=== PATIENT | female | born 1935 ===

== ENCOUNTER 2017-05-14 07:15 | Day surgery (SDC) | payer MEDICARE ==
[2017-05-14 08:06] VITALS: BMI 23.8
[2017-05-14] MEDS ORDERED: Lactated Ringer's 500 ML IV ONE ×2 (08:35)
--- NOTE | 2017-05-14 08:49 | CP.SDSHP ---
Same Day Surgery H & P - History Proposed Procedure: High risk Screening Colonoscopy - Previous Medical/Surgical History Cardiac: Hypertension Endocrine/Metabolic: Diabetes Previous Surgical History: Gastric ulcer, cholecystectomy, right oophorectomy, appendectomy - Allergies Allergies: Allergies No Known Allergies Allergy (Unverified 02/11/14 10:15) - Current Medications Current Medications: See reconciliation sheet - Physical Exam General Appearance: WD WN female in NAD Vital Signs: Vital Signs 05/14/17 08:06 Temperature 97.1 F L Pulse Rate 81 Respiratory 20 Rate Blood Pressure 158/67 H O2 Sat by Pulse 99 Oximetry Mental Status: Alert & Oriented x3 Neuro: WNL Heart: WNL Lungs: WNL GI: WNL - {Optional Preform as Required} Abdomen: WNL - Impression Impression: History of colon polyps Pt. Evaluated Today:Candidate for Anesthesia & Procedure: Yes - Date & Time Date: 05/14/17 Time: 08:48 Short Stay Discharge - Short Stay Discharge Admitting Diagnosis/Reason for Visit: IRRITABLE BOWEL SYNDROME WITHOUT DIARRHEA Disposition: HOME/ ROUTINE
[2017-05-14 08:57] VITALS: O2SAT 100
[2017-05-14 09:43] VITALS: TEMP 97.7
[2017-05-14 10:29] VITALS: BP 133/71; PULSE 63; RESP 15
== END 2017-05-14 10:28 | disposition home or self-care (01) ==
LOC: C.ENDO 07:15
PROVIDERS: ATTEND Internal Medicine Gastroenterology
DX: D01.2 Carcinoma in situ of rectum (principal); K62.1 Rectal polyp; K58.9 Irritable bowel syndrome, unspecified; Z86.010 Personal history of colon polyps
CPT/HCPCS: 45388; 82948; 88305; 88342; J7120

== ENCOUNTER 2017-05-17 23:27 | Inpatient (IN) | payer MEDICARE ==
[2017-05-17 23:27] VITALS: BMI 23.8
[2017-05-17] MEDS ORDERED: Sodium Chloride 0.9% 1,000 ML ONE (23:45)
--- NOTE | 2017-05-18 00:19 | C.PDOC ---
History Of Present Illness pt ate around 5:30 pm and then developed nausea and vomiting. Daugther states she vomited some dark substance, coffee grounds like. Pt also had a colonoscopy on sunday Time Seen by Provider: 05/18/17 00:19 Chief Complaint (Nursing): Abdominal Pain History Per: Patient History/Exam Limitations: no limitations Onset/Duration Of Symptoms: Hrs Current Symptoms Are (Timing): Still Present Context: Food Severity: Moderate Pain Scale Rating Of: 4 Location Of Pain/Discomfort: Diffuse Radiation Of Pain To:: None Quality Of Discomfort: Dull, Cramping Associated Symptoms: Nausea, Vomiting. denies: Fever, Chills Exacerbating Factors: None Alleviating Factors: None Last Bowel Movement: Yesterday Recent travel outside of the [place]: No Additional History Per: Family Abnormal Vaginal Bleeding: No Past Medical History Reviewed: Historical Data, Nursing Documentation, Vital Signs Vital Signs: Last Vital Signs Temp 98.2 F 05/18/17 05:44 Pulse 70 05/18/17 05:44 Resp 14 05/18/17 05:44 BP 168/88 H 05/18/17 05:44 Pulse Ox 96 05/18/17 05:44 - Medical History PMH: Gall Bladder Disease, HTN, Hypercholesterolemia Denies: Chronic Kidney Disease Surgical History: Appendectomy, Cholecystectomy Family History: States: No Known Family Hx - Social History Hx Alcohol Use: No Hx Substance Use: No Review Of Systems Constitutional: Negative for: Fever, Chills Eyes: Negative for: Redness ENT: Negative for: Throat Pain Cardiovascular: Negative for: Chest Pain Respiratory: Negative for: Shortness of Breath Gastrointestinal: Positive for: Nausea, Vomiting, Abdominal Pain Genitourinary: Negative for: Hematuria Musculoskeletal: Negative for: Back Pain Skin: Negative for: Rash, Lesions Neurological: Negative for: Weakness Psych: Negative for: Anxiety Physical Exam - Physical Exam Appears: Non-toxic, No Acute Distress Skin: Warm, Dry Head: Normacephalic Eye(s): bilateral: Normal Inspection Oral Mucosa: Moist Neck: Supple Chest: Symmetrical Cardiovascular: Rhythm Regular Respiratory: No Rales, No Rhonchi, No Wheezing Gastrointestinal/Abdominal: Bowel Sounds (tympanic to percussion), Soft, Tenderness, Distention, No Guarding, No Rebound Back: No CVA Tenderness Extremity: No Tenderness Extremity: Bilateral: Atraumatic Pulses: Left Dorsalis Pedis: Normal, Right Dorsalis Pedis: Normal Neurological/Psych: Oriented x3, Normal Speech, Normal Cognition Gait: Steady ED Course And Treatment - Laboratory Results Result Diagrams: 05/18/17 00:27 05/18/17 00:27 ECG: Interpreted By Me, Viewed By Me ECG Rhythm: Sinus Rhythm (65), Nonspecific Changes O2 Sat by Pulse Oximetry: 99 Pulse Ox Interpretation: Normal Disposition Discussed With Dr.: Izabella Price Comment: accepted the pt on his service and took over the care at 6:12 AM Doctor Will See Patient In The: Hospital Counseled Patient/Family Regarding: Studies Performed, Diagnosis - Disposition Disposition: HOSPITALIZED Disposition Time: 00:19 Condition: FAIR Forms: [email or web address] (Spanish) - Clinical Impression Clinical Impression: Abdominal pain, Nausea, Vomiting, Small bowel obstruction Decision To Admit - Pt Status Changed To: Hospital Disposition Of: Inpatient - Admit Certification Admit to Inpatient:: After my assessment, the patient will require hospitalization for at least two midnights. This is because of the severity of symptoms shown, intensity of services needed, and/or the medical risk in this patient being treated as an outpatient. - InPatient: Physician Admission Certification:: After my assessment, the patient will require hospitalization for at least two midnights. This is because of the severity of symptoms shown, intensity of services needed, and/or the medical risk in this patient being treated as an outpatient. - . Bed Request Type: Regular Admitting Physician: Izabella Price Patient Diagnosis: Abdominal pain, Nausea, Vomiting, Small bowel obstruction
[2017-05-18] MEDS ORDERED: Sodium Chloride 0.9% 1,000 ML IV ONE (00:20)
[2017-05-18] MEDS ORDERED: Sodium Chloride 0.9% 1,000 ML ONE (00:25)
[2017-05-18 00:30] LABS: BASO # 0.1 K/uL (0.0-0.2); BASO % 0.5 % (0.0-2.0); EOS # 0.1 K/uL (0.0-0.7); EOS % 0.4 % (0.0-4.0); HEMOGLOBIN 12.5 g/dL (11.0-16.0); LYMPH # 1.7 K/uL (1.0-4.3); LYMPH % 11.2 % (20.0-40.0); MEAN CELL VOLUME 84.7 fL (81.0-99.0); MEAN CORPUSCULAR HEMOGLOBIN 27.9 pg (27.0-31.0); MEAN PLATELET VOLUME 9.5 fL (7.2-11.7); MONO # 0.7 K/uL (0.0-0.8); MONO % 4.5 % (0.0-10.0); NEUT # 12.9 K/uL (1.8-7.0); NEUT % 83.4 % (50.0-75.0); RBC 4.48 Mil/uL (3.80-5.20); RED CELL DISTRIBUTION WIDTH 14.2 % (11.5-14.5); WHITE BLOOD COUNT 15.5 K/uL (4.8-10.8)
[2017-05-18 00:43] LABS: INR 0.9; PROTHROMBIN TIME 10.5 SECONDS (9.7-12.2)
[2017-05-18 00:44] LABS: ALB/GLOB RATIO 1.4 (1.0-2.1); ALBUMIN 4.2 g/dL (3.5-5.0); CALCIUM 9.3 mg/dl (8.6-10.4)
[2017-05-18 01:26] LABS: URINE BILIRUBIN NEGATIVE (NEGATIVE); URINE BLOOD NEGATIVE (NEGATIVE); URINE CLARITY Clear (Clear); URINE COLOR Straw (YELLOW); URINE GLUCOSE (UA) 3+ mg/dL (Normal); URINE LEUKOCYTE ESTERASE NEG Leu/uL (Negative); URINE NITRATE NEGATIVE (NEGATIVE); URINE PROTEIN 1+ mg/dL (NEGATIVE); URINE UROBILINOGEN NORMAL mg/dL (0.2-1.0)
--- NOTE | 2017-05-18 02:59 | CT ---
EXAM: CT Abdomen and Pelvis Without Intravenous Contrast CLINICAL HISTORY: 82 years old, female; Pain; Abdominal pain; Additional info: Abd pain, distention, S/P sigmoid resection in apr TECHNIQUE: Axial computed tomography images of the abdomen and pelvis without intravenous contrast. This CT exam was performed using one or more of the following dose reduction techniques: automated exposure control, adjustment of the mA and/or kV according to patient size, and/or use of iterative reconstruction technique. Coronal and sagittal reformatted images were created and reviewed. COMPARISON: No relevant prior studies available. FINDINGS: Lower thorax: Coronary artery calcifications. Mild cardiomegaly. Surgical clips in the region of the gastroesophageal junction. Atherosclerotic vascular disease. ABDOMEN: Liver: Unremarkable. Gallbladder and bile ducts: Cholecystectomy. Bilateral renal cortical lobulation and thinning. No ductal dilation. Pancreas: Unremarkable. No ductal dilation. Spleen: Unremarkable. No splenomegaly. Adrenals: Unremarkable. No mass. Kidneys and ureters: Unremarkable. No obstructing stones. No hydronephrosis. Stomach and bowel: Stomach is decompressed. Small bowel loops are diffusely fluid-filled with some more dilated small bowel loops noted in the central portion of the abdomen containing air-fluid levels. The small bowel loops are dilated up to 4 CM diameter. The lack of oral contrast does limit this study to some degree. Bowel loops in the left pelvis are smaller in caliber raising the possibility of a partial distal small bowel obstruction. Fluid and stool throughout much of the colon. Moderate amount of stool seen through the sigmoid and rectum. Appendix: No findings to suggest acute appendicitis. PELVIS: Bladder: Unremarkable. No stones. Reproductive: Unremarkable as visualized. ABDOMEN and PELVIS: Intraperitoneal space: Unremarkable. No free air. No significant fluid collection. Bones/joints: Diffuse spinal degenerative changes. No acute fracture. No dislocation. Soft tissues: Unremarkable. Vasculature: No abdominal aortic aneurysm. Lymph nodes: Unremarkable. No enlarged lymph nodes. IMPRESSION: 1. CT findings suggestive of enteritis versus partial distal small bowel obstruction. 2. Moderate amount of retained stool in colon correlate with bowel habits for possible component of constipation. 3. The stomach is not distended. 4. Remainder of findings as above.
[2017-05-18] MEDS ORDERED: metroNIDAZOLE IV 500 mg/100 ml 500 MG/100 ML BAG IVPB STA (03:33)
[2017-05-18] MEDS ORDERED: cefTRIAXone IV 1 gm in Dextros 50 ML IVPB ONE (03:47)
[2017-05-18] MEDS ORDERED: metroNIDAZOLE IV 500 mg/100 ml 500 MG/100 ML BAG ONE (03:48)
[2017-05-18] MEDS ORDERED: Sodium Chloride 0.9% 1,000 ML IV SCH (08:15)
[2017-05-18 08:34] VITALS: RESP 20
[2017-05-18] MEDS ORDERED: Metoprolol Succinate 50 mg XL Tab PO SCH (10:00)
[2017-05-18] MEDS: Metoprolol Succinate 50 mg XL Tab PO SCH (10:20)
[2017-05-18] MEDS ORDERED: Potassium Chloride 40 MEQ in Sodium Chloride 0.45% 1,000 ML IV ONE (10:38)
[2017-05-18] MEDS: Ciprofloxacin 200mg/100ml D5W 100 ML IVPB SCH ×2 (11:45→21:56)
[2017-05-18] MEDS: metroNIDAZOLE IV 250mg/50 ml 250 MG/50 ML BAG IVPB SCH ×2 (13:41→21:08)
--- NOTE | 2017-05-18 18:47 | CP.PCM.CON ---
History of Present Illness - History of Present Illness History of Present Illness: This is an 82 year old woman with abdominal pain and vomiting Patient has a history of chronic diarrhea which has been attributed to diabetes , hiatal hernia and GERD. She also has a history of schistosomiasis over 15 years ago. She was seen in the office on 04/18/2017, at which time the diarrhea was better, occurring after eating butter and waffles. She complained of occasional nausea and vomiting, most recently two weeks before the visit. She also complained of poor appetite without weight loss and difficulty swallowing large tablets but no dysphagia for food. She reported seeing blood on the toilet paper on occasion after straining. She has a history of tubulovillous adenoma in 2013, and a surveillance colonoscopy was performed 05/14/2018. 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 Patient did well until the evening before admission, when she noted sudden onset of nausea, vomiting and epigastric/RUQ dull cramping abdominal pain which lasted for five hours. She vomited at least five or six times. She denies having any lower abdominal discomfort. She has had only small bowel movements since the colonoscopy without any bleeding. She also reports having chills, but is not aware of any fever. Evaluation in the ER showed leukocytosis, WBC 15,500, and CT scan showing S/P cholecystectomy, non-dilated biliary system, dilated small bowel loops in the central portion of the abdomen dilated up to 4 cm and containing air-fluid levels, suggestive of partial SBO. Review of Systems - Review of Systems All systems: reviewed and no additional remarkable complaints except - Constitutional Constitutional: Chills. absent: Fever - EENT Nose/Mouth/Throat: absent: Sore Throat - Cardiovascular Cardiovascular: absent: Chest Pain - Respiratory Respiratory: absent: Dyspnea - Gastrointestinal Gastrointestinal: Abdominal Pain, Nausea, Vomiting. absent: Hematochezia - Genitourinary Genitourinary: absent: Hematuria - Musculoskeletal Musculoskeletal: absent: Back Pain Past Patient History - Past Medical History & Family History Past Medical History?: Yes - Past Social History Smoking Status: Never Smoked - CARDIAC Hx Hypercholesterolemia: Yes Hx Hypertension: Yes - PULMONARY Hx Respiratory Disorders: No - NEUROLOGICAL Hx Neurological Disorder: No - HEENT Hx HEENT Problems: No - RENAL Hx Chronic Kidney Disease: No - ENDOCRINE/METABOLIC Hx Diabetes Mellitus Type 2: Yes - HEMATOLOGICAL/ONCOLOGICAL Hx Blood Disorders: No - INTEGUMENTARY Hx Dermatological Problems: No - MUSCULOSKELETAL/RHEUMATOLOGICAL Hx Musculoskeletal Disorders: Yes Hx Falls: No Hx Osteoarthritis: Yes - GASTROINTESTINAL Hx Gall Bladder Disease: Yes - GENITOURINARY/GYNECOLOGICAL Hx Genitourinary Disorders: Yes (KIDNEY STONE) - PSYCHIATRIC Hx Substance Use: No - SURGICAL HISTORY Hx Appendectomy: Yes Hx Cholecystectomy: Yes - ANESTHESIA Hx Anesthesia: Yes Hx Anesthesia Reactions: No Hx Malignant Hyperthermia: No Meds Allergies/Adverse Reactions: Allergies Allergy/AdvReac Type Severity Reaction Status Date / Time No Known Allergies Allergy Unverified 02/11/14 10:15 - Medications Medications: Current Medications Amlodipine Besylate (Norvasc) 5 mg PO DAILY [facility] Last Admin: 05/18/17 10:20 Dose: 5 mg Famotidine (Pepcid) 20 mg IVP DAILY [facility] Heparin Sodium (Porcine) (Heparin) 5,000 units SC Q12 [facility] Last Admin: 05/18/17 10:20 Dose: Not Given Ciprofloxacin (Cipro 200mg/100ml D5w) 100 mls @ 67 mls/hr IVPB Q12H [facility] Last Admin: 05/18/17 11:45 Dose: 67 mls/hr Metronidazole (Flagyl) 250 mg in 50 mls @ 100 mls/hr IVPB Q8 [facility] Stop: 05/23/17 14:01 Last Admin: 05/18/17 13:41 Dose: 100 mls/hr Potassium Chloride 40 meq/ (Sodium Chloride) 1,020 mls @ 100 mls/hr IV .[id number] ONE Stop: 05/18/17 20:49 Last Admin: 05/18/17 11:45 Dose: 100 mls/hr Losartan Potassium (Cozaar) 50 mg PO DAILY [facility] Metoprolol Succinate (Toprol Xl) 50 mg PO DAILY [facility] Last Admin: 05/18/17 10:20 Dose: 50 mg Ondansetron HCl (Zofran Inj) 4 mg IVP Q8H PRN PRN Reason: Nausea/Vomiting Last Admin: 05/18/17 10:20 Dose: 4 mg Pneumococcal Polyvalent Vaccine (Pneumovax 23 Vaccine) 0.5 ml IM .ONCE ONE Stop: 05/21/17 10:01 Results - Vital Signs Recent Vital Signs: Last Vital Signs Temp 97.8 F 05/18/17 15:49 Pulse 67 05/18/17 15:49 Resp 20 05/18/17 15:49 BP 146/62 05/18/17 15:49 Pulse Ox 97 05/18/17 15:49 - Labs Result Diagrams: 05/18/17 00:27 05/18/17 00:27 Labs: Laboratory Results - last 24 hr 05/18/17 05/18/17 05/18/17 09:12 11:19 16:33 POC Glucose (mg/dL) 275 H 241 H 223 H Assessment & Plan (1) Abdominal pain Assessment and Plan: 82 year old woman, S/P cholecystectomy, appendectomy, ovarian cyst, who presents with nausea, vomiting, abdominal pain four days after colonoscopy. The most likely explanation is partial SBO related to adhesions. The CT scan shows no changes around the distal rectum, the site of the polypectomy. Agree with antibiotic coverage. Will check cultures, repeat CBC and CMP, order obstructive series. Status: Acute
[2017-05-18 20:25] LABS: BASO # 0.1 K/uL (0.0-0.2); BASO % 0.7 % (0.0-2.0); EOS # 0.2 K/uL (0.0-0.7); EOS % 2.1 % (0.0-4.0); HEMOGLOBIN 11.4 g/dL (11.0-16.0); LYMPH # 2.9 K/uL (1.0-4.3); LYMPH % 25.2 % (20.0-40.0); MEAN CELL VOLUME 83.6 fL (81.0-99.0); MEAN CORPUSCULAR HEMOGLOBIN 28.2 pg (27.0-31.0); MEAN CORPUSCULAR HGB CONC 33.8 g/dL (33.0-37.0); MEAN PLATELET VOLUME 9.3 fL (7.2-11.7); MONO % 8.5 % (0.0-10.0); NEUT # 7.3 K/uL (1.8-7.0); NEUT % 63.5 % (50.0-75.0); RBC 4.04 Mil/uL (3.80-5.20); RED CELL DISTRIBUTION WIDTH 14.5 % (11.5-14.5); WHITE BLOOD COUNT 11.5 K/uL (4.8-10.8)
[2017-05-18 20:44] LABS: ALBUMIN 3.6 g/dL (3.5-5.0)
[2017-05-18 20:47] LABS: ALB/GLOB RATIO 1.2 (1.0-2.1); CALCIUM 8.9 mg/dl (8.6-10.4); MAGNESIUM 1.3 mg/dL (1.6-2.3)
--- NOTE | 2017-05-18 21:33 | CP.PCM.HP ---
History of Present Illness - History of Present Illness History of Present Illness: Chief complaint: Vomiting History present illness: 82-year-old female with history of diabetes, hiatus hernia, gastroesophageal reflux disease, history of schistosomiasis in the past. Patient 4 days ago had a colonoscopy. She was doing well, until yesterday, suddenly she started having sudden onset of abdominal discomfort in the right upper quadrant area, and associated with the multiple episodes of vomiting. Vomiting is bilious in character. She was also having worsening pain over the right side of the abdominal. Chills noted, occasional fever present. No cough, no chest pain. Patient also complaining of not able to pass gas or no bowel movements. She does not have any chest pain at this time. Patient was not able to eat anything well. Past medical history: Diabetes, hiatus hernia, gastroesophageal reflux disease. History of schistosomiasis in the past. Villous adenoma. Surgical history: Patient had a cholecystectomy in the past, Allergy: No known drug allergy Personal history: Nonsmoker nonalcoholic. Use with the daughter. No family history Current medications reviewed Review of system: Currently patient is having no headache, but complaining of abdominal pain nausea vomiting, multiple episodes of vomiting. No diarrhea noted. Vital signs reviewed No neck vein distention noted Chest good air entry bilaterally, no wheezing or rales noted CVS regular heart sound, no murmur noted Abdomen soft, mildly right epigastric hypochondriac tenderness noted Extremities no pedal edema [employer] alert awake oriented 3, no functional neurological deficit Labs reviewed in CT scan of the abdomen showing evidence of partial intestinal obstruction Assessment the condition: 82-year-old female with history of diabetes hiatus hernia gastroesophageal reflux disease. Recently had a colonoscopy. Currently patient is having vomiting. Most likely partial obstruction, secondary to adhesions likely. Now patient is feeling slightly better. She is currently nothing by mouth. IV fluid. GI evaluation called. Surgical evaluation may be needed. We'll continue the current treatment. We'll follow the patient Present on Admission - Present on Admission Any Indicators Present on Admission: No History of DVT/PE: No History of Uncontrolled Diabetes: No Urinary Catheter: No Decubitus Ulcer Present: No Past Patient History - Past Medical History & Family History Past Medical History?: Yes - Past Social History Smoking Status: Never Smoked - CARDIAC Hx Hypercholesterolemia: Yes Hx Hypertension: Yes - PULMONARY Hx Respiratory Disorders: No - NEUROLOGICAL Hx Neurological Disorder: No - HEENT Hx HEENT Problems: No - RENAL Hx Chronic Kidney Disease: No - ENDOCRINE/METABOLIC Hx Diabetes Mellitus Type 2: Yes - HEMATOLOGICAL/ONCOLOGICAL Hx Blood Disorders: No - INTEGUMENTARY Hx Dermatological Problems: No - MUSCULOSKELETAL/RHEUMATOLOGICAL Hx Musculoskeletal Disorders: Yes Hx Falls: No Hx Osteoarthritis: Yes - GASTROINTESTINAL Hx Gall Bladder Disease: Yes - GENITOURINARY/GYNECOLOGICAL Hx Genitourinary Disorders: Yes (KIDNEY STONE) - PSYCHIATRIC Hx Substance Use: No - SURGICAL HISTORY Hx Appendectomy: Yes Hx Cholecystectomy: Yes - ANESTHESIA Hx Anesthesia: Yes Hx Anesthesia Reactions: No Hx Malignant Hyperthermia: No Meds Allergies/Adverse Reactions: Allergies Allergy/AdvReac Type Severity Reaction Status Date / Time No Known Allergies Allergy Unverified 02/11/14 10:15 Results - Vital Signs Recent Vital Signs: Last Vital Signs Temp 97.8 F 05/18/17 15:49 Pulse 67 05/18/17 15:49 Resp 20 05/18/17 15:49 BP 146/62 05/18/17 15:49 Pulse Ox 97 05/18/17 15:49 - Labs Result Diagrams: 05/18/17 20:19 05/18/17 20:19 Labs: Laboratory Results - last 24 hr 05/18/17 05/18/17 05/18/17 09:12 11:19 16:33 WBC RBC Hgb Hct MCV MCH MCHC RDW Plt Count MPV Neut % (Auto) Lymph % (Auto) [place] % (Auto) Eos % (Auto) Baso % (Auto) Neut # Lymph # [place] # Eos # Baso # Sodium Potassium Chloride Carbon Dioxide Anion Gap BUN Creatinine Est GFR ( Amer) Est GFR (Non-Af Amer) POC Glucose (mg/dL) 275 H 241 H 223 H Random Glucose Calcium Phosphorus Magnesium Total Bilirubin AST ALT Alkaline Phosphatase Total Protein Albumin Globulin Albumin/Globulin Ratio Ur Random Sodium 05/18/17 05/18/17 05/18/17 20:19 20:19 20:19 WBC 11.5 H RBC 4.04 Hgb 11.4 Hct 33.8 L MCV 83.6 MCH 28.2 MCHC 33.8 RDW 14.5 Plt Count 176 MPV 9.3 Neut % (Auto) 63.5 Lymph % (Auto) 25.2 [place] % (Auto) 8.5 Eos % (Auto) 2.1 Baso % (Auto) 0.7 Neut # 7.3 H Lymph # 2.9 Crook # 1.0 H Eos # 0.2 Baso # 0.1 Sodium 141 Potassium 3.5 L Chloride 100 Carbon Dioxide 27 Anion Gap 17 BUN 24 H Creatinine 1.4 H Est GFR ( Amer) 44 Est GFR (Non-Af Amer) 36 POC Glucose (mg/dL) Random Glucose 156 H Calcium 8.9 Phosphorus 2.8 Magnesium 1.3 L Total Bilirubin 0.9 AST 28 ALT 32 Alkaline Phosphatase 82 Total Protein 6.7 Albumin 3.6 Globulin 3.1 Albumin/Globulin Ratio 1.2 Ur Random Sodium 46 05/18/17 21:05 WBC RBC Hgb Hct MCV MCH MCHC RDW Plt Count MPV Neut % (Auto) Lymph % (Auto) [place] % (Auto) Eos % (Auto) Baso % (Auto) Neut # Lymph # [place] # Eos # Baso # Sodium Potassium Chloride Carbon Dioxide Anion Gap BUN Creatinine Est GFR ( Amer) Est GFR (Non-Af Amer) POC Glucose (mg/dL) 161 H Random Glucose Calcium Phosphorus Magnesium Total Bilirubin AST ALT Alkaline Phosphatase Total Protein Albumin Globulin Albumin/Globulin Ratio Ur Random Sodium
[2017-05-19] MEDS: metroNIDAZOLE IV 250mg/50 ml 250 MG/50 ML BAG IVPB SCH ×3 (05:00→21:25)
[2017-05-19 09:11] LABS: BASO # 0.1 K/uL (0.0-0.2); BASO % 0.9 % (0.0-2.0); EOS # 0.2 K/uL (0.0-0.7); HEMOGLOBIN 10.6 g/dL (11.0-16.0); LYMPH # 2.2 K/uL (1.0-4.3); LYMPH % 27.7 % (20.0-40.0); MEAN CELL VOLUME 84.4 fL (81.0-99.0); MEAN CORPUSCULAR HGB CONC 33.1 g/dL (33.0-37.0); MEAN PLATELET VOLUME 9.4 fL (7.2-11.7); MONO # 0.7 K/uL (0.0-0.8); MONO % 8.8 % (0.0-10.0); NEUT # 4.8 K/uL (1.8-7.0); NEUT % 59.6 % (50.0-75.0); RBC 3.81 Mil/uL (3.80-5.20); RED CELL DISTRIBUTION WIDTH 14.6 % (11.5-14.5); WHITE BLOOD COUNT 8.1 K/uL (4.8-10.8)
[2017-05-19 09:26] LABS: ALBUMIN 3.2 g/dL (3.5-5.0)
[2017-05-19 09:29] LABS: ALB/GLOB RATIO 1.1 (1.0-2.1); CALCIUM 8.6 mg/dl (8.6-10.4); MAGNESIUM 1.2 mg/dL (1.6-2.3)
--- NOTE | 2017-05-19 10:44 | RAD ---
PROCEDURE: Radiographs of the chest and abdomen (obstructive series) HISTORY: Follow up SBO COMPARISON: CT abdomen and pelvis from 05/18/2017 TECHNIQUE: AP radiograph of the chest, with upright and supine radiographs of the abdomen. FINDINGS: CHEST: Lungs: There is pulmonary venous congestion. No focal consolidation. Cardiovascular: Normal size heart. No pulmonary vascular congestion. Pleura: No pleural fluid. No pneumothorax. Other findings: None. ABDOMEN AND PELVIS: Bowel: The bowel gas pattern is nonspecific. No evidence of mechanical obstruction. Free air: None. Bones: Within normal limits for the patient's age. Other findings: There are multiple surgical clips in the epigastrium. IMPRESSION: Nonobstructive bowel-gas pattern. No evidence of mechanical bowel obstruction.
[2017-05-19] MEDS: Ciprofloxacin 200mg/100ml D5W 100 ML IVPB SCH (11:30)
[2017-05-19] MEDS: Metoprolol Succinate 50 mg XL Tab PO SCH (11:42)
--- NOTE | 2017-05-19 12:48 | CP.PCM.PN ---
Subjective - Date & Time of Evaluation Date of Evaluation: 05/19/17 Time of Evaluation: 12:44 - Subjective Subjective: COVERING DR BARKSDALE No pain. One episode of vomiting earlier today UGI series shows no obstruction or abnormality. Objective - Vital Signs/Intake and Output Vital Signs (last 24 hours): Temp Pulse Resp BP Pulse Ox 98.5 F 60 20 151/77 H 97 05/19/17 08:45 05/19/17 08:45 05/19/17 08:45 05/19/17 08:45 05/19/17 08:45 Intake and Output: 05/19/17 05/19/17 06:59 18:59 Intake Total 1320 Balance 1320 - Medications Medications: Current Medications Amlodipine Besylate (Norvasc) 5 mg PO DAILY [facility] Last Admin: 05/19/17 11:35 Dose: 5 mg Famotidine (Pepcid) 20 mg IVP DAILY [facility] Last Admin: 05/19/17 11:35 Dose: 20 mg Heparin Sodium (Porcine) (Heparin) 5,000 units SC Q12 [facility] Last Admin: 05/19/17 11:35 Dose: 5,000 units Ciprofloxacin (Cipro 200mg/100ml D5w) 100 mls @ 67 mls/hr IVPB Q12H [facility] Last Admin: 05/19/17 11:30 Dose: 67 mls/hr Metronidazole (Flagyl) 250 mg in 50 mls @ 100 mls/hr IVPB Q8 [facility] Stop: 05/23/17 14:01 Last Admin: 05/19/17 05:00 Dose: 100 mls/hr Losartan Potassium (Cozaar) 50 mg PO DAILY [facility] Last Admin: 05/19/17 11:34 Dose: 50 mg Metoprolol Succinate (Toprol Xl) 50 mg PO DAILY [facility] Last Admin: 05/19/17 11:42 Dose: 50 mg Ondansetron HCl (Zofran Inj) 4 mg IVP Q8H PRN PRN Reason: Nausea/Vomiting Last Admin: 05/19/17 06:40 Dose: 4 mg Pneumococcal Polyvalent Vaccine (Pneumovax 23 Vaccine) 0.5 ml IM .ONCE ONE Stop: 05/21/17 10:01 - Labs Labs: 05/19/17 08:58 05/19/17 08:58 PT 10.5 SECONDS (9.7-12.2) 05/18/17 00:27 INR 0.9 05/18/17 00:27 APTT 27 SECONDS (21-34) 05/18/17 00:27 - Constitutional Appears: No Acute Distress - Head Exam Head Exam: ATRAUMATIC, NORMOCEPHALIC - Eye Exam Eye Exam: PERRL - Respiratory Exam Respiratory Exam: NORMAL BREATHING PATTERN - Cardiovascular Exam Cardiovascular Exam: REGULAR RHYTHM - GI/Abdominal Exam GI & Abdominal Exam: Soft, Normal Bowel Sounds. absent: Distended, Guarding, Rigid, Tenderness, Mass - Extremities Exam Extremities Exam: Normal Inspection Assessment and Plan (1) Partial bowel obstruction Assessment & Plan: No obstruction seen on barium study. Reports only nausea today and wants to eat Advance diet as tolerated and observe Status: Acute (2) Vomiting Assessment & Plan: as above Status: Acute (3) Epigastric pain Assessment & Plan: as above Status: Acute (4) Dysplastic rectal polyp Assessment & Plan: Further follow up with Dr Barksdale as outpatient. Status: Acute
--- NOTE | 2017-05-19 17:09 | CP.PCM.CON ---
History of Present Illness - History of Present Illness History of Present Illness: INFECTIOUS DISEASE CONSULTATION COLTON MERCADO MD, FACP 3T 369-A 05/19/2017 CHART REVIEWED PT EXAMINED\ CASE DISCUSSED PERSONALLY WITH DR KATHLEEN 82 YEAR OLD FEMALE ADMITTED EARLY SUNDAY WITH ACUTE EPISODES OF ABDOMINAL PAIN AND FREQUENT EPISODES OF NAUSEA AND VOMINTING WITH PROSTRATION. SHE WAS SUBSEQUENTLY BROUGHT TO ER/ED AND W/U SUGGESTED SMALL BOWEL OBSTRUCTION, WITH WBC OF 15.5 WITH RENAL INSUFFICIENCY, CREAT 1.8. AN INFECTIOUS DISEASE CONSULTATIONWAS REQUESTED TO HELP MANAGE IV ANTIBIOTICS AND REVIEW HER PROGRESS ACCORDINGLY. PMMHX: HTN DM GERD HIATAL HERNIA DYSLIPIDEMIA S/P CHOLECYSTECTOMY S/P APPENDECTOMY AND LOW AND BEHOLD A QUESTION OF SCHISTOSMIASIS OVER 15YERS AGO! ALSO OF IMPORTANCE IS THAT SHE IS S/P COLONOSCOPOY 3 DAYS PRIOR TO ADMISSION. 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 NEWS TO ME! NO KNOW ALLEGIES NO TOBACCO NO ETOH FAMILY HX NOT APPLICABLE IN THIS 82 YR OLD FEMALE. ROS: PER H/P LESS SYMPTOMS OVER THE PAST 24 HOURS, ADVANCING DIET NOTED DOES SHE KNOW ABOUT HER TISSUE DIAGNOSIS AND WHAT'S THE NEXT PROCEDURE. VSS: AWAKE AND ALERT SUPPLE COR; MURMUR NOTED ABDOEMN SOFT, SOME RUQ DISCOMFORT ONLY ON DEEP PALPATION EXT NO EDEMA SMALL BOWEL OBSTRUCTION-RESOLVING, POST PROCEDURE, POST MED, POST CRYPTOGENIC? CIPRO AND FLAGYL FOR NOW GI FOLLOW UP TO FOLLOW NEEDED. TO DISCUSS WITH DR BARKSDALE ON SUNDAY. Review of Systems - Constitutional Constitutional: Fatigue. absent: Anorexia, Chills, Increased Appetite, Weight Gain, Weight Loss - EENT Eyes: absent: As Per HPI, Blind Spots, Blurred Vision, Change in Vision, Decreased Night Vision, Diplopia, Discharge, Dry Eye, Exophthalmos, Floaters, Irritation, Itchy Eyes, Loss of Peripheral Vision, Pain, Photophobia, Requires Corrective Lenses, Sees Flashes, Spots in Vision, Tunnel Vision, Other Visual Disturbances, Loss of Vision, Other Ears: Decreased Hearing Nose/Mouth/Throat: absent: As Per HPI, Epistaxis, Nasal Congestion, Nasal Discharge, Nasal Obstruction, Nasal Trauma, Nose Pain, Post Nasal Drip, Sinus Pain, Sinus Pressure, Bleeding Gums, Change in Voice, Dental Pain, Dry Mouth, Dysphagia, Halitosis, Hoarsness, Lip Swelling, Mouth Lesions, Mouth Pain, Odynophagia, Sore Throat, Throat Swelling, Tongue Swelling, Facial Pain, Neck Pain, Neck Mass, Other - Cardiovascular Cardiovascular: absent: Chest Pain at Rest, Chest Pain with Activity, Dyspnea, Orthopnea, Palpitations - Respiratory Respiratory: absent: Dyspnea, Wheezing, Stridor - Gastrointestinal Gastrointestinal: Abdominal Pain, Change in Bowel Habits, Constipation, Vomiting - Genitourinary Genitourinary: absent: As Per HPI, Change in Urinary Stream, Difficulty Urinating, Dysuria, Flank Pain, Hematuria, Pyuria, Nocturia, Urinary Incontinence, Urinary Frequency, Urinary Hesitance, Urinary Urgency, Voiding Freq/Small Amts, Freq UTI, Hx Renal/Bladder Calculi, Hx /Renal Surgery, Bladder Distension, Other - Musculoskeletal Musculoskeletal: Arthralgias, Back Pain, Myalgias, Stiffness - Integumentary Integumentary: absent: As Per HPI, Acne, Alopecia, Bleeding Lesions, Change in Hair, Change in Nails, Change in Pigmentation, Changing Lesions, Dry Skin, Erythema, Furuncle, Hirsutism, Lesions, New Lesions, Non-Healing Lesions, Photosensitivity, Pruritus, Rash, Skin Pain, Skin Ulcer, Sores, Striae, Swelling , Unusual Bruising, Wounds, Jaundice, Other - Psychiatric Psychiatric: Anxiety Past Patient History - Tetanus Immunizations Tetanus Immunization: Unknown - Past Medical History & Family History Past Medical History?: Yes - Past Social History Smoking Status: Never Smoked Chewing Tobacco Use: No Cigar Use: No Alcohol: Occasional Drugs: Denies Home Situation {Lives}: With Family - CARDIAC Hx Cardiac Disorders: Yes Hx Hypercholesterolemia: Yes Hx Hypertension: Yes - PULMONARY Hx Respiratory Disorders: No - NEUROLOGICAL Hx Neurological Disorder: No - HEENT Hx HEENT Problems: No - RENAL Hx Chronic Kidney Disease: No (QUESTION NOTED) - ENDOCRINE/METABOLIC Hx Diabetes Mellitus Type 2: Yes - HEMATOLOGICAL/ONCOLOGICAL Hx Blood Disorders: No - INTEGUMENTARY Hx Dermatological Problems: No - MUSCULOSKELETAL/RHEUMATOLOGICAL Hx Musculoskeletal Disorders: Yes Hx Falls: No Hx Osteoarthritis: Yes - GASTROINTESTINAL Hx Gastrointestinal Disorders: Yes Hx Gall Bladder Disease: Yes Other/Comment: HX OF APPENDECTOMY - GENITOURINARY/GYNECOLOGICAL Hx Genitourinary Disorders: Yes (KIDNEY STONE) - PSYCHIATRIC Hx Psychophysiologic Disorder: Yes Hx Anxiety: Yes Hx Substance Use: No - SURGICAL HISTORY Hx Surgeries: Yes Hx Appendectomy: Yes Hx Cholecystectomy: Yes - ANESTHESIA Hx Anesthesia: Yes Hx Anesthesia Reactions: No Hx Malignant Hyperthermia: No Meds Allergies/Adverse Reactions: Allergies Allergy/AdvReac Type Severity Reaction Status Date / Time No Known Allergies Allergy Unverified 02/11/14 10:15 - Medications Medications: Current Medications Amlodipine Besylate (Norvasc) 5 mg PO DAILY [facility] Last Admin: 05/19/17 11:35 Dose: 5 mg Famotidine (Pepcid) 20 mg IVP DAILY [facility] Last Admin: 05/19/17 11:35 Dose: 20 mg Heparin Sodium (Porcine) (Heparin) 5,000 units SC Q12 [facility] Last Admin: 05/19/17 11:35 Dose: 5,000 units Ciprofloxacin (Cipro 200mg/100ml D5w) 100 mls @ 67 mls/hr IVPB Q12H [facility] Last Admin: 05/19/17 11:30 Dose: 67 mls/hr Metronidazole (Flagyl) 250 mg in 50 mls @ 100 mls/hr IVPB Q8 [facility] Stop: 05/23/17 14:01 Last Admin: 05/19/17 14:41 Dose: 100 mls/hr Losartan Potassium (Cozaar) 50 mg PO DAILY [facility] Last Admin: 05/19/17 11:34 Dose: 50 mg Metoprolol Succinate (Toprol Xl) 50 mg PO DAILY [facility] Last Admin: 05/19/17 11:42 Dose: 50 mg Ondansetron HCl (Zofran Inj) 4 mg IVP Q8H PRN PRN Reason: Nausea/Vomiting Last Admin: 05/19/17 06:40 Dose: 4 mg Pneumococcal Polyvalent Vaccine (Pneumovax 23 Vaccine) 0.5 ml IM .ONCE ONE Stop: 05/21/17 10:01 Physical Exam - Constitutional Appears: Non-toxic - Head Exam Head Exam: ATRAUMATIC - Eye Exam Pupil Exam: NORMAL ACCOMODATION - ENT Exam ENT Exam: Mucous Membranes Moist - Neck Exam Neck exam: Positive for: Normal Inspection - Respiratory Exam Respiratory Exam: Decreased Breath Sounds, NORMAL BREATHING PATTERN. absent: Accessory Muscle Use, Chest Wall Tenderness - Cardiovascular Exam Cardiovascular Exam: REGULAR RHYTHM - GI/Abdominal Exam GI & Abdominal Exam: Normal Bowel Sounds, Soft, Tenderness. absent: Mass, Rebound - Rectal Exam Rectal Exam: Deferred - Extremities Exam Extremities exam: Negative for: calf tenderness - Back Exam Back exam: NORMAL INSPECTION - Neurological Exam Neurological exam: Alert, Oriented x3 - Psychiatric Exam Psychiatric exam: Anxious Results - Vital Signs Recent Vital Signs: Last Vital Signs Temp 98.5 F 05/19/17 08:45 Pulse 60 05/19/17 08:45 Resp 20 05/19/17 08:45 BP 151/77 H 05/19/17 08:45 Pulse Ox 97 05/19/17 08:45 - Labs Result Diagrams: 05/19/17 08:58 05/19/17 08:58 Labs: Laboratory Results - last 24 hr 05/18/17 05/18/17 05/18/17 16:33 20:19 20:19 WBC 11.5 H RBC 4.04 Hgb 11.4 Hct 33.8 L MCV 83.6 MCH 28.2 MCHC 33.8 RDW 14.5 Plt Count 176 MPV 9.3 Neut % (Auto) 63.5 Lymph % (Auto) 25.2 Craven % (Auto) 8.5 Eos % (Auto) 2.1 Baso % (Auto) 0.7 Neut # 7.3 H Lymph # 2.9 Craven # 1.0 H Eos # 0.2 Baso # 0.1 Sodium 141 Potassium 3.5 L Chloride 100 Carbon Dioxide 27 Anion Gap 17 BUN 24 H Creatinine 1.4 H Est GFR ( Amer) 44 Est GFR (Non-Af Amer) 36 POC Glucose (mg/dL) 223 H Random Glucose 156 H Calcium 8.9 Phosphorus 2.8 Magnesium 1.3 L Total Bilirubin 0.9 AST 28 ALT 32 Alkaline Phosphatase 82 Total Protein 6.7 Albumin 3.6 Globulin 3.1 Albumin/Globulin Ratio 1.2 Ur Random Sodium 05/18/17 05/18/17 05/19/17 20:19 21:05 07:13 WBC RBC Hgb Hct MCV MCH MCHC RDW Plt Count MPV Neut % (Auto) Lymph % (Auto) Craven % (Auto) Eos % (Auto) Baso % (Auto) Neut # Lymph # Craven # Eos # Baso # Sodium Potassium Chloride Carbon Dioxide Anion Gap BUN Creatinine Est GFR ( Amer) Est GFR (Non-Af Amer) POC Glucose (mg/dL) 161 H 178 H Random Glucose Calcium Phosphorus Magnesium Total Bilirubin AST ALT Alkaline Phosphatase Total Protein Albumin Globulin Albumin/Globulin Ratio Ur Random Sodium 46 05/19/17 05/19/17 05/19/17 08:58 08:58 11:32 WBC 8.1 RBC 3.81 Hgb 10.6 L Hct 32.1 L MCV 84.4 MCH 28.0 MCHC 33.1 RDW 14.6 H Plt Count 161 MPV 9.4 Neut % (Auto) 59.6 Lymph % (Auto) 27.7 Craven % (Auto) 8.8 Eos % (Auto) 3.0 Baso % (Auto) 0.9 Neut # 4.8 Lymph # 2.2 Craven # 0.7 Eos # 0.2 Baso # 0.1 Sodium 139 Potassium 4.1 Chloride 102 Carbon Dioxide 25 Anion Gap 16 BUN 20 H Creatinine 1.4 H Est GFR ( Amer) 44 Est GFR (Non-Af Amer) 36 POC Glucose (mg/dL) 155 H Random Glucose 158 H Calcium 8.6 Phosphorus 2.6 Magnesium 1.2 L Total Bilirubin 0.9 AST 30 ALT 37 Alkaline Phosphatase 72 Total Protein 6.2 L Albumin 3.2 L Globulin 2.9 Albumin/Globulin Ratio 1.1 Ur Random Sodium Assessment & Plan (1) Small bowel obstruction Status: Acute (2) Abdominal pain Status: Acute (3) Nausea Status: Acute (4) Vomiting Status: Acute (5) Diabetes 1.5, managed as type 1 Status: Chronic (6) GERD (gastroesophageal reflux disease) Status: Chronic
--- NOTE | 2017-05-19 18:30 | CP.PCM.PN ---
Subjective - Date & Time of Evaluation Date of Evaluation: 05/19/17 Time of Evaluation: 18:29 - Subjective Subjective: pt is doing well tolerating the liquid diet clinically stable Objective - Vital Signs/Intake and Output Vital Signs (last 24 hours): Temp Pulse Resp BP Pulse Ox 98.5 F 60 20 151/77 H 97 05/19/17 08:45 05/19/17 08:45 05/19/17 08:45 05/19/17 08:45 05/19/17 08:45 Intake and Output: 05/19/17 05/19/17 06:59 18:59 Intake Total 1320 100 Balance 1320 100 - Medications Medications: Current Medications Amlodipine Besylate (Norvasc) 5 mg PO DAILY [facility] Last Admin: 05/19/17 11:35 Dose: 5 mg Famotidine (Pepcid) 20 mg IVP DAILY [facility] Last Admin: 05/19/17 11:35 Dose: 20 mg Heparin Sodium (Porcine) (Heparin) 5,000 units SC Q12 [facility] Last Admin: 05/19/17 11:35 Dose: 5,000 units Ciprofloxacin (Cipro 200mg/100ml D5w) 100 mls @ 67 mls/hr IVPB Q12H [facility] Last Admin: 05/19/17 11:30 Dose: 67 mls/hr Metronidazole (Flagyl) 250 mg in 50 mls @ 100 mls/hr IVPB Q8 [facility] Stop: 05/23/17 14:01 Last Admin: 05/19/17 14:41 Dose: 100 mls/hr Losartan Potassium (Cozaar) 50 mg PO DAILY [facility] Last Admin: 05/19/17 11:34 Dose: 50 mg Metoprolol Succinate (Toprol Xl) 50 mg PO DAILY [facility] Last Admin: 05/19/17 11:42 Dose: 50 mg Ondansetron HCl (Zofran Inj) 4 mg IVP Q8H PRN PRN Reason: Nausea/Vomiting Last Admin: 05/19/17 06:40 Dose: 4 mg Pneumococcal Polyvalent Vaccine (Pneumovax 23 Vaccine) 0.5 ml IM .ONCE ONE Stop: 05/21/17 10:01 - Labs Labs: 05/19/17 08:58 05/19/17 08:58 PT 10.5 SECONDS (9.7-12.2) 05/18/17 00:27 INR 0.9 05/18/17 00:27 APTT 27 SECONDS (21-34) 05/18/17 00:27 Assessment and Plan - Assessment and Plan (Free Text) Assessment: diarrhea today no vomiting
[2017-05-19] MEDS: (Novolin R) Insulin Human Regular 100 units/ml vial SC SCH (22:16)
[2017-05-20] MEDS: metroNIDAZOLE IV 250mg/50 ml 250 MG/50 ML BAG IVPB SCH ×3 (05:36→21:41)
[2017-05-20 08:39] LABS: ALBUMIN 3.2 g/dL (3.5-5.0); HEMOGLOBIN 10.7 g/dL (11.0-16.0); MEAN CORPUSCULAR HEMOGLOBIN 28.5 pg (27.0-31.0); MEAN CORPUSCULAR HGB CONC 33.5 g/dL (33.0-37.0); MEAN PLATELET VOLUME 9.3 fL (7.2-11.7); RBC 3.76 Mil/uL (3.80-5.20); RED CELL DISTRIBUTION WIDTH 14.2 % (11.5-14.5); WHITE BLOOD COUNT 7.9 K/uL (4.8-10.8)
[2017-05-20 08:43] LABS: ALB/GLOB RATIO 1.1 (1.0-2.1); CALCIUM 8.6 mg/dl (8.6-10.4)
[2017-05-20] MEDS: (Novolin R) Insulin Human Regular 100 units/ml vial SC SCH ×4 (09:54→22:05)
[2017-05-20] MEDS: Metoprolol Succinate 50 mg XL Tab PO SCH (09:59)
[2017-05-20] MEDS: Ciprofloxacin 200mg/100ml D5W 100 ML IVPB SCH ×3 (11:48→22:44)
--- NOTE | 2017-05-20 12:14 | CP.PCM.PN ---
Subjective - Date & Time of Evaluation Date of Evaluation: 05/20/17 Time of Evaluation: 12:12 - Subjective Subjective: COVERING DR BARKSDALE Patient tolerating diet with only mild nausea. No vomiting, pain or diarrhea. Had normal bowel movement per family at bedside. Objective - Vital Signs/Intake and Output Vital Signs (last 24 hours): Temp Pulse Resp BP Pulse Ox 98.6 F 61 20 130/62 98 05/20/17 08:46 05/20/17 08:46 05/20/17 08:46 05/20/17 09:52 05/20/17 08:46 Intake and Output: 05/20/17 05/20/17 06:59 18:59 Intake Total 350 Balance 350 - Medications Medications: Current Medications Amlodipine Besylate (Norvasc) 5 mg PO DAILY [facility] Last Admin: 05/20/17 09:54 Dose: 5 mg Famotidine (Pepcid) 20 mg IVP DAILY [facility] Last Admin: 05/20/17 09:54 Dose: 20 mg Heparin Sodium (Porcine) (Heparin) 5,000 units SC Q12 [facility] Last Admin: 05/20/17 09:59 Dose: 5,000 units Ciprofloxacin (Cipro 200mg/100ml D5w) 100 mls @ 67 mls/hr IVPB Q12H [facility] Last Admin: 05/20/17 11:48 Dose: 67 mls/hr Metronidazole (Flagyl) 250 mg in 50 mls @ 100 mls/hr IVPB Q8 [facility] Stop: 05/23/17 14:01 Last Admin: 05/20/17 05:36 Dose: 100 mls/hr Insulin Human Regular (Novolin R) 0 unit SC ACHS [facility] PRN Reason: Protocol Last Admin: 05/20/17 11:49 Dose: 2 unit Losartan Potassium (Cozaar) 50 mg PO DAILY [facility] Last Admin: 05/20/17 09:54 Dose: 50 mg Metoprolol Succinate (Toprol Xl) 50 mg PO DAILY [facility] Last Admin: 05/20/17 09:59 Dose: Not Given Ondansetron HCl (Zofran Inj) 4 mg IVP Q8H PRN PRN Reason: Nausea/Vomiting Last Admin: 05/20/17 05:36 Dose: 4 mg Pneumococcal Polyvalent Vaccine (Pneumovax 23 Vaccine) 0.5 ml IM .ONCE ONE Stop: 05/21/17 10:01 - Labs Labs: 05/20/17 08:24 05/20/17 08:24 PT 10.5 SECONDS (9.7-12.2) 05/18/17 00:27 INR 0.9 05/18/17 00:27 APTT 27 SECONDS (21-34) 05/18/17 00:27 - Constitutional Appears: No Acute Distress - Head Exam Head Exam: ATRAUMATIC, NORMOCEPHALIC - Respiratory Exam Respiratory Exam: NORMAL BREATHING PATTERN - Cardiovascular Exam Cardiovascular Exam: REGULAR RHYTHM, +S1 - GI/Abdominal Exam GI & Abdominal Exam: Soft, Normal Bowel Sounds. absent: Distended, Tenderness, Mass, Rebound - Extremities Exam Extremities Exam: Normal Inspection Assessment and Plan (1) Partial bowel obstruction Assessment & Plan: No signs or symptoms to suggest obstruction at present. Radiologic work up negative. Possible infectious etiology (viral), doubt PUD. Advance diet and observe. consider EGD if Nausea +/- vomiting persist. Possible discharge planning and consider stopping antibiotics (await recommendations from ID) Status: Acute (2) Vomiting Assessment & Plan: as above Status: Resolved (3) Epigastric pain Status: Resolved (4) Dysplastic rectal polyp Assessment & Plan: Polyp with intramucosal adenocarcinoma and dysplasia. Plan for further endoscopic management or possible EMR referral. To be discussed with Patient, attending and Dr Jaramillo by Dr Barksdale. Status: Acute
[2017-05-20] MEDS: Pantoprazole 40 mg EC Tab PO SCH (13:20)
--- NOTE | 2017-05-20 18:38 | CP.PCM.PN ---
Subjective - Date & Time of Evaluation Date of Evaluation: 05/20/17 Time of Evaluation: 18:37 - Subjective Subjective: Patient is currently feeling much better, no nausea vomiting noted. Tolerating oral feeding. Urine output is normal. No chest pain or shortness of breath. On examination: HEENT PERRLA, neck supple No thyromegaly was noted and no cervical adenopathy noted Chest bilateral good air entry, no wheezing or rales noted CVS regular heart sound, no murmur Abdomen soft and no organomegaly Extremities no pedal edema, no leg swelling, pedal pulses are good. MONOTYPER alert awake oriented x3 no functional neurological deficit. Labs reviewed. Assessment and recommendation: 82-year-old female with history of diabetes, hypertension, admitted with the partial small bowel obstruction, currently improving. GI followup and will follow the patient. Possible discharge plan in the morning Objective - Vital Signs/Intake and Output Vital Signs (last 24 hours): Temp Pulse Resp BP Pulse Ox 98 F 56 L 20 171/69 H 100 05/20/17 15:00 05/20/17 15:00 05/20/17 15:00 05/20/17 15:00 05/20/17 15:00 Intake and Output: 05/20/17 05/20/17 06:59 18:59 Intake Total 350 200 Balance 350 200 - Medications Medications: Current Medications Amlodipine Besylate (Norvasc) 5 mg PO DAILY [facility] Last Admin: 05/20/17 09:54 Dose: 5 mg Heparin Sodium (Porcine) (Heparin) 5,000 units SC Q12 [facility] Last Admin: 05/20/17 09:59 Dose: 5,000 units Ciprofloxacin (Cipro 200mg/100ml D5w) 100 mls @ 67 mls/hr IVPB Q12H [facility] Last Admin: 05/20/17 13:11 Dose: 67 mls/hr Metronidazole (Flagyl) 250 mg in 50 mls @ 100 mls/hr IVPB Q8 [facility] Stop: 05/23/17 14:01 Last Admin: 05/20/17 13:12 Dose: 100 mls/hr Insulin Human Regular (Novolin R) 0 unit SC ACHS [facility] PRN Reason: Protocol Last Admin: 05/20/17 16:30 Dose: 1 unit Losartan Potassium (Cozaar) 50 mg PO DAILY [facility] Last Admin: 05/20/17 09:54 Dose: 50 mg Metoprolol Succinate (Toprol Xl) 50 mg PO DAILY [facility] Last Admin: 05/20/17 09:59 Dose: Not Given Ondansetron HCl (Zofran Inj) 4 mg IVP Q8H PRN PRN Reason: Nausea/Vomiting Last Admin: 05/20/17 05:36 Dose: 4 mg Pantoprazole Sodium (Protonix Ec Tab) 40 mg PO DAILY [facility] Last Admin: 05/20/17 13:20 Dose: 40 mg Pneumococcal Polyvalent Vaccine (Pneumovax 23 Vaccine) 0.5 ml IM .ONCE ONE Stop: 05/21/17 10:01 - Labs Labs: 05/20/17 08:24 05/20/17 08:24 PT 10.5 SECONDS (9.7-12.2) 05/18/17 00:27 INR 0.9 05/18/17 00:27 APTT 27 SECONDS (21-34) 05/18/17 00:27
[2017-05-21] MEDS: metroNIDAZOLE IV 250mg/50 ml 250 MG/50 ML BAG IVPB SCH ×2 (06:02→13:33)
[2017-05-21] MEDS: (Novolin R) Insulin Human Regular 100 units/ml vial SC SCH ×3 (08:21→17:08)
--- NOTE | 2017-05-21 09:17 | CP.PCM.PN ---
Subjective - Date & Time of Evaluation Date of Evaluation: 05/21/17 Time of Evaluation: 09:12 - Subjective Subjective: Patient denies having nausea, vomiting, abdominal pain. She is tolerating a Heart Healthy diet. She had two bowel movements yesterday and one today. Objective - Vital Signs/Intake and Output Vital Signs (last 24 hours): Temp Pulse Resp BP Pulse Ox 98.4 F 61 20 147/67 99 05/21/17 07:12 05/21/17 07:12 05/21/17 07:12 05/21/17 07:12 05/21/17 07:12 Intake and Output: 05/21/17 05/21/17 06:59 18:59 Intake Total 170 Balance 170 - Medications Medications: Current Medications Amlodipine Besylate (Norvasc) 5 mg PO DAILY [facility] Last Admin: 05/20/17 09:54 Dose: 5 mg Heparin Sodium (Porcine) (Heparin) 5,000 units SC Q12 [facility] Last Admin: 05/20/17 21:43 Dose: 5,000 units Ciprofloxacin (Cipro 200mg/100ml D5w) 100 mls @ 67 mls/hr IVPB Q12H [facility] Last Admin: 05/20/17 22:44 Dose: 67 mls/hr Metronidazole (Flagyl) 250 mg in 50 mls @ 100 mls/hr IVPB Q8 [facility] Stop: 05/23/17 14:01 Last Admin: 05/21/17 06:02 Dose: 100 mls/hr Insulin Human Regular (Novolin R) 0 unit SC ACHS [facility] PRN Reason: Protocol Last Admin: 05/21/17 08:21 Dose: 2 unit Losartan Potassium (Cozaar) 50 mg PO DAILY [facility] Last Admin: 05/20/17 09:54 Dose: 50 mg Metoprolol Succinate (Toprol Xl) 50 mg PO DAILY [facility] Last Admin: 05/20/17 09:59 Dose: Not Given Ondansetron HCl (Zofran Inj) 4 mg IVP Q8H PRN PRN Reason: Nausea/Vomiting Last Admin: 05/20/17 05:36 Dose: 4 mg Pantoprazole Sodium (Protonix Ec Tab) 40 mg PO DAILY [facility] Last Admin: 05/20/17 13:20 Dose: 40 mg Pneumococcal Polyvalent Vaccine (Pneumovax 23 Vaccine) 0.5 ml IM .ONCE ONE Stop: 05/21/17 10:01 - Labs Labs: 05/20/17 08:24 05/20/17 08:24 PT 10.5 SECONDS (9.7-12.2) 05/18/17 00:27 INR 0.9 05/18/17 00:27 APTT 27 SECONDS (21-34) 05/18/17 00:27 - Constitutional Appears: No Acute Distress - Head Exam Head Exam: ATRAUMATIC, NORMOCEPHALIC - Neck Exam Neck Exam: absent: Lymphadenopathy - Respiratory Exam Respiratory Exam: NORMAL BREATHING PATTERN. absent: Rales, Rhonchi, Wheezes - Cardiovascular Exam Cardiovascular Exam: REGULAR RHYTHM, +S1, +S2. absent: Gallop, Rubs, Murmur - GI/Abdominal Exam GI & Abdominal Exam: Soft, Normal Bowel Sounds. absent: Tenderness, Mass, Organomegaly - Rectal Exam Rectal Exam: Deferred - Extremities Exam Extremities Exam: absent: Calf Tenderness, Pedal Edema Assessment and Plan (1) Abdominal pain Assessment & Plan: Abdominal pain has resolved. Patient is tolerating regular food and is having regular bowel movements. The abdominal x-ray from Sunday showed no evidence of SBO. She is stable for discharge from my standpoint. Biopsies of the polyp removed 05/14/2017 were read on 05/17/2017 and received in the office Sunday. There are foci of high grade dysplasia/ carcinoma in situ, without invasive carcinoma. The next step will be to repeat the colonoscopy within four to six weeks to examine the polypectomy site and remove or ablate residual polyp tissue, if any. Status: Acute
[2017-05-21] MEDS ORDERED: Pneumococcal 23-Valent Vaccine IM ONE (10:00)
[2017-05-21] MEDS: Metoprolol Succinate 50 mg XL Tab PO SCH (10:17)
[2017-05-21] MEDS: Pantoprazole 40 mg EC Tab PO SCH (10:17)
[2017-05-21] MEDS: Ciprofloxacin 200mg/100ml D5W 100 ML IVPB SCH (10:20)
[2017-05-21] MEDS: Simethicone 80 mg Chewtab PO SCH ×2 (11:54→17:09)
[2017-05-21 15:53] VITALS: BP 156/70; PULSE 62; TEMP 98.3; O2SAT 97
--- NOTE | 2017-05-21 16:30 | CP.PCM.PN ---
Subjective - Date & Time of Evaluation Date of Evaluation: 05/21/17 Time of Evaluation: 16:22 - Subjective Subjective: INFECTIOUS DISEASE PROGRESS NOTE COLTON MERCADO MD, FACP 05/20-05/21/2017Sunday AND SUNDAY VISITS 3T 369-A CHART REVIEWED PT EXAMINED CASE DISCUSSED WITH PT AND EXAMINED, DAUGHTER PRESENT NOW APPEARS MORE COMFORTABLE AND TALKATIVE, QUESTION OF VAGUE LEFT EAR ISSUES, NO PAIN, NO DISCHARGE CASE DISCUSSED IN DETAIL WITH DR BARKSDALE THIS MORNING, TO INFOR DR MAZA. AWAKE AND ALERT SUPPLE CHEST CLEAR ABD SOFT NO TENDERNESS EXT NO EDEMA QUESTION OF RESOLVING ABDOMINAL IRRITATION FOOD, ADHESIONS, POST PROCEDURES(?). SCHISTOSOMIASIS BY CUSTODIAL HISTORY-OVER 30 SOMEWHAT YEARS AGO. DM HTN RESUME PRESVIOUS MEDS CIPRO+FLAGYL OVER THE NEXT 3-5 DAYS ANTIVERT 12.5 PO BID, PRN X 7 DAYS NEEDED. RX GIVEN. Objective - Vital Signs/Intake and Output Vital Signs (last 24 hours): Temp Pulse Resp BP Pulse Ox 98.3 F 62 20 156/70 H 97 05/21/17 15:52 05/21/17 15:52 05/21/17 15:52 05/21/17 15:52 05/21/17 15:52 Intake and Output: 05/21/17 05/21/17 06:59 18:59 Intake Total 170 Balance 170 - Medications Medications: Current Medications Amlodipine Besylate (Norvasc) 5 mg PO DAILY [facility] Last Admin: 05/21/17 10:17 Dose: 5 mg Heparin Sodium (Porcine) (Heparin) 5,000 units SC Q12 [facility] Last Admin: 05/21/17 10:17 Dose: 5,000 units Ciprofloxacin (Cipro 200mg/100ml D5w) 100 mls @ 67 mls/hr IVPB Q12H [facility] Last Admin: 05/21/17 10:20 Dose: 67 mls/hr Metronidazole (Flagyl) 250 mg in 50 mls @ 100 mls/hr IVPB Q8 [facility] Stop: 05/23/17 14:01 Last Admin: 05/21/17 13:33 Dose: 100 mls/hr Insulin Human Regular (Novolin R) 0 unit SC ACHS [facility] PRN Reason: Protocol Last Admin: 05/21/17 11:54 Dose: 2 unit Losartan Potassium (Cozaar) 50 mg PO DAILY [facility] Last Admin: 05/21/17 10:17 Dose: 50 mg Metoprolol Succinate (Toprol Xl) 50 mg PO DAILY [facility] Last Admin: 05/21/17 10:17 Dose: 50 mg Ondansetron HCl (Zofran Inj) 4 mg IVP Q8H PRN PRN Reason: Nausea/Vomiting Last Admin: 05/20/17 05:36 Dose: 4 mg Pantoprazole Sodium (Protonix Ec Tab) 40 mg PO DAILY [facility] Last Admin: 05/21/17 10:17 Dose: 40 mg Simethicone (Mylicon Chew Tab) 80 mg PO BID [facility] Last Admin: 05/21/17 11:54 Dose: 80 mg - Labs Labs: 05/20/17 08:24 05/20/17 08:24 PT 10.5 SECONDS (9.7-12.2) 05/18/17 00:27 INR 0.9 05/18/17 00:27 APTT 27 SECONDS (21-34) 05/18/17 00:27 - Constitutional Appears: Well, Non-toxic - Head Exam Head Exam: ATRAUMATIC - Eye Exam Eye Exam: Normal appearance - ENT Exam ENT Exam: Mucous Membranes Moist - Neck Exam Neck Exam: Normal Inspection - Respiratory Exam Respiratory Exam: Clear to Ausculation Bilateral, NORMAL BREATHING PATTERN - Cardiovascular Exam Cardiovascular Exam: REGULAR RHYTHM - GI/Abdominal Exam GI & Abdominal Exam: Soft, Normal Bowel Sounds. absent: Mass, Rebound - Rectal Exam Rectal Exam: Deferred - Neurological Exam Neurological Exam: Alert, Awake, Oriented x3 - Psychiatric Exam Psychiatric exam: Anxious - Skin Skin Exam: Warm Assessment and Plan (1) Small bowel obstruction Status: Resolved (2) Abdominal pain Status: Resolved (3) Nausea Status: Resolved (4) Vomiting Status: Resolved (5) Diabetes 1.5, managed as type 1 Status: Chronic (6) GERD (gastroesophageal reflux disease) Status: Chronic - Assessment and Plan (Free Text) Assessment: FOR DISCHARGE ON RX GIVEN. FOLLOWU UP IN 1 WEEK IN MY OFFICE. THANK YOU.
--- NOTE | 2017-05-21 18:15 | CP.PCM.PN ---
Subjective - Date & Time of Evaluation Date of Evaluation: 05/21/17 Time of Evaluation: 11:00 - Subjective Subjective: Awake, alert, no acute distress. Objective - Vital Signs/Intake and Output Vital Signs (last 24 hours): Temp Pulse Resp BP Pulse Ox 98.3 F 62 20 156/70 H 97 05/21/17 15:52 05/21/17 15:52 05/21/17 15:52 05/21/17 15:52 05/21/17 15:52 Intake and Output: 05/21/17 05/21/17 06:59 18:59 Intake Total 170 Balance 170 - Medications Medications: Current Medications Amlodipine Besylate (Norvasc) 5 mg PO DAILY [facility] Last Admin: 05/21/17 10:17 Dose: 5 mg Heparin Sodium (Porcine) (Heparin) 5,000 units SC Q12 [facility] Last Admin: 05/21/17 10:17 Dose: 5,000 units Ciprofloxacin (Cipro 200mg/100ml D5w) 100 mls @ 67 mls/hr IVPB Q12H [facility] Last Admin: 05/21/17 10:20 Dose: 67 mls/hr Metronidazole (Flagyl) 250 mg in 50 mls @ 100 mls/hr IVPB Q8 [facility] Stop: 05/23/17 14:01 Last Admin: 05/21/17 13:33 Dose: 100 mls/hr Insulin Human Regular (Novolin R) 0 unit SC ACHS JOSÉ ANTONIO PRN Reason: Protocol Last Admin: 05/21/17 17:08 Dose: 4 unit Losartan Potassium (Cozaar) 50 mg PO DAILY [facility] Last Admin: 05/21/17 10:17 Dose: 50 mg Metoprolol Succinate (Toprol Xl) 50 mg PO DAILY [facility] Last Admin: 05/21/17 10:17 Dose: 50 mg Ondansetron HCl (Zofran Inj) 4 mg IVP Q8H PRN PRN Reason: Nausea/Vomiting Last Admin: 05/20/17 05:36 Dose: 4 mg Pantoprazole Sodium (Protonix Ec Tab) 40 mg PO DAILY [facility] Last Admin: 05/21/17 10:17 Dose: 40 mg Simethicone (Mylicon Chew Tab) 80 mg PO BID [facility] Last Admin: 05/21/17 17:09 Dose: 80 mg - Labs Labs: 05/20/17 08:24 05/20/17 08:24 PT 10.5 SECONDS (9.7-12.2) 05/18/17 00:27 INR 0.9 05/18/17 00:27 APTT 27 SECONDS (21-34) 05/18/17 00:27 Assessment and Plan - Assessment and Plan (Free Text) Assessment: Patient is seen and examined. Alert, awake, no abdominal pain or distress. Cleared by GI and DR Jaramillo. d/w DR Price, plan to discharge home on po flagyl and cipro as per DR Jaramillo. Advised to follow up with PMD IN 1 week.
--- NOTE | 2017-05-23 21:05 | CP.PCM.DIS ---
Provider - Provider Date of Admission: 05/18/17 06:11 Attending physician: Izabella Price MD Time Spent in preparation of Discharge (in minutes): 45 Hospital Course - Lab Results Lab Results: Most Recent Lab Values WBC 7.9 K/uL (4.8-10.8) 05/20/17 08:24 RBC 3.76 Mil/uL (3.80-5.20) L 05/20/17 08:24 Hgb 10.7 g/dL (11.0-16.0) L 05/20/17 08:24 Hct 32.0 % (34.0-47.0) L 05/20/17 08:24 MCV 85.0 fL (81.0-99.0) 05/20/17 08:24 MCH 28.5 pg (27.0-31.0) 05/20/17 08:24 MCHC 33.5 g/dL (33.0-37.0) 05/20/17 08:24 RDW 14.2 % (11.5-14.5) 05/20/17 08:24 Plt Count 164 K/uL (130-400) 05/20/17 08:24 MPV 9.3 fL (7.2-11.7) 05/20/17 08:24 Neut % (Auto) 59.6 % (50.0-75.0) 05/19/17 08:58 Lymph % (Auto) 27.7 % (20.0-40.0) 05/19/17 08:58 Collin % (Auto) 8.8 % (0.0-10.0) 05/19/17 08:58 Eos % (Auto) 3.0 % (0.0-4.0) 05/19/17 08:58 Baso % (Auto) 0.9 % (0.0-2.0) 05/19/17 08:58 Neut # 4.8 K/uL (1.8-7.0) 05/19/17 08:58 Lymph # 2.2 K/uL (1.0-4.3) 05/19/17 08:58 Collin # 0.7 K/uL (0.0-0.8) 05/19/17 08:58 Eos # 0.2 K/uL (0.0-0.7) 05/19/17 08:58 Baso # 0.1 K/uL (0.0-0.2) 05/19/17 08:58 PT 10.5 SECONDS (9.7-12.2) 05/18/17 00:27 INR 0.9 05/18/17 00:27 APTT 27 SECONDS (21-34) 05/18/17 00:27 Sodium 139 mmol/L (132-148) 05/20/17 08:24 Potassium 3.7 mmol/L (3.6-5.2) 05/20/17 08:24 Chloride 101 mmol/L (98-107) 05/20/17 08:24 Carbon Dioxide 24 mmol/L (22-30) 05/20/17 08:24 Anion Gap 18 (10-20) 05/20/17 08:24 BUN 19 mg/dL (7-17) H 05/20/17 08:24 Creatinine 1.5 MG/DL (0.7-1.2) H 05/20/17 08:24 Est GFR ( Amer) 40 05/20/17 08:24 Est GFR (Non-Af Amer) 33 05/20/17 08:24 POC Glucose (mg/dL) 322 mg/dL (65-110) H 05/21/17 16:14 Random Glucose 216 mg/dL (65-105) H 05/20/17 08:24 Calcium 8.6 mg/dl (8.6-10.4) 05/20/17 08:24 Phosphorus 2.6 mg/dL (2.5-4.5) 05/19/17 08:58 Magnesium 1.2 mg/dL (1.6-2.3) L 05/19/17 08:58 Total Bilirubin 0.9 mg/dL (0.2-1.3) 05/20/17 08:24 AST 42 U/L (14-36) H D 05/20/17 08:24 ALT 41 U/L (9-52) 05/20/17 08:24 Alkaline Phosphatase 72 U/L (38-126) 05/20/17 08:24 Total Protein 6.1 g/dL (6.3-8.3) L 05/20/17 08:24 Albumin 3.2 g/dL (3.5-5.0) L 05/20/17 08:24 Globulin 2.8 gm/dL (2.2-3.9) 05/20/17 08:24 Albumin/Globulin Ratio 1.1 (1.0-2.1) 05/20/17 08:24 Lipase 119 U/L (23-300) 05/18/17 00:27 Urine Color Straw (YELLOW) 05/18/17 00:20 Urine Clarity Clear (Clear) 05/18/17 00:20 Urine pH 6.0 (5.0-8.0) 05/18/17 00:20 Ur Specific Williams 1.007 (1.003-1.030) 05/18/17 00:20 Urine Protein 1+ mg/dL (NEGATIVE) H 05/18/17 00:20 Urine Glucose (UA) 3+ mg/dL (Normal) H 05/18/17 00:20 Urine Ketones Negative mg/dL (NEGATIVE) 05/18/17 00:20 Urine Blood Negative (NEGATIVE) 05/18/17 00:20 Urine Nitrate Negative (NEGATIVE) 05/18/17 00:20 Urine Bilirubin Negative (NEGATIVE) 05/18/17 00:20 Urine Urobilinogen Normal mg/dL (0.2-1.0) 05/18/17 00:20 Ur Leukocyte Esterase Neg Valeria/uL (Negative) 05/18/17 00:20 Urine WBC (Auto) < 1 /hpf (0-5) 05/18/17 00:20 Urine RBC (Auto) < 1 /hpf (0-3) 05/18/17 00:20 Ur Random Sodium 46 mmol/L 05/18/17 20:19 Gastric Occult Blood Negative (NEGATIVE) 05/18/17 03:44 Blood Type A POSITIVE 05/18/17 03:52 Antibody Screen Negative 05/18/17 03:52 - Hospital Course Hospital Course: History present illness: 82-year-old female with history of diabetes, hiatus hernia, gastroesophageal reflux disease, history of schistosomiasis in the past. Patient 4 days ago had a colonoscopy. She was doing well, until yesterday, suddenly she started having sudden onset of abdominal discomfort in the right upper quadrant area, and associated with the multiple episodes of vomiting. Vomiting is bilious in character. She was also having worsening pain over the right side of the abdominal. Chills noted, occasional fever present. No cough, no chest pain. Patient also complaining of not able to pass gas or no bowel movements. She does not have any chest pain at this time. Patient was not able to eat anything well. Past medical history: Diabetes, hiatus hernia, gastroesophageal reflux disease. History of schistosomiasis in the past. Villous adenoma. Surgical history: Patient had a cholecystectomy in the past, Allergy: No known drug allergy Personal history: Nonsmoker nonalcoholic. Use with the daughter. No family history Current medications reviewed Review of system: Currently patient is having no headache, but complaining of abdominal pain nausea vomiting, multiple episodes of vomiting. No diarrhea noted. Vital signs reviewed No neck vein distention noted Chest good air entry bilaterally, no wheezing or rales noted CVS regular heart sound, no murmur noted Abdomen soft, mildly right epigastric hypochondriac tenderness noted Extremities no pedal edema [employer] alert awake oriented 3, no functional neurological deficit Labs reviewed in CT scan of the abdomen showing evidence of partial intestinal obstruction Assessment the condition: 82-year-old female with history of diabetes hiatus hernia gastroesophageal reflux disease. Recently had a colonoscopy. Currently patient is having vomiting. Most likely partial obstruction, secondary to adhesions likely. Now patient is feeling slightly better. She is currently nothing by mouth. IV fluid. GI evaluation called. Surgical evaluation may be needed. We'll continue the current treatment. We'll follow the patient On 05/14/2017 patient had a colonoscopy. Patient now admitted to the hospital with a possible small bowel obstruction. In the medical floor patient started IV fluid, closely monitored. Initially started on clear liquid diet. Called to GI evaluation. Patient slowly is tolerated the clear liquids, and advance regular diet. According to the GI patient is stable for discharge. 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 Patient will follow up with the GI Patient will need another colonoscopy in 4-6 weeks, according to GI. Patient will follow up with the PMD. Patient will continue her home medications pain Discharge Exam - Head Exam Head Exam: ATRAUMATIC Discharge Plan - Discharge Medications Prescriptions: Ciprofloxacin HCl [Cipro] 500 mg PO BID #10 tablet Metronidazole [Flagyl] 500 mg PO TID #15 tablet - Follow Up Plan Condition: FAIR Disposition: HOME/ ROUTINE Instructions: Acute Abdominal Pain (DC), Acute Abdominal Pain (GEN)
== END 2017-05-21 17:50 | disposition home health service (06) | DRG 390 ==
LOC: C.ER 23:27 → C.9E 05-18 06:11 → C.5T 05-18 07:11 → C.3T 05-18 22:52
PROVIDERS: ADMIT Internal Medicine; ATTEND Internal Medicine
DX: K56.5 Intestinal adhesions [bands] with obstruction (postinfection) (principal); D72.829 Elevated white blood cell count, unspecified; E11.69 Type 2 diabetes mellitus with other specified complication; I10 Essential (primary) hypertension; D01.2 Carcinoma in situ of rectum; E78.5 Hyperlipidemia, unspecified; F45.21 Hypochondriasis; K21.9 Gastro-esophageal reflux disease without esophagitis; K44.9 Diaphragmatic hernia without obstruction or gangrene; N28.9 Disorder of kidney and ureter, unspecified; N83.209 Unspecified ovarian cyst, unspecified side; Z86.010 Personal history of colon polyps; Z87.442 Personal history of urinary calculi; Z90.49 Acquired absence of other specified parts of digestive tract; R19.7 Diarrhea, unspecified; Z86.19 Personal history of other infectious and parasitic diseases

== ENCOUNTER 2017-07-23 09:12 | Day surgery (SDC) | payer MEDICARE ==
[2017-07-20 09:24] VITALS: BMI 24.7
[2017-07-23] MEDS ORDERED: Lidocaine 4% (Laryng-O-Jet) Kit MM ONE (12:02)
[2017-07-23] MEDS ORDERED: Midazolam 2 MG/2 ML VIAL ONE (12:05)
[2017-07-23] MEDS ORDERED: Propofol 10 mg/ml Inj (20 ML) ONE (12:06)
[2017-07-23 14:19] VITALS: O2SAT 99
[2017-07-23 15:08] VITALS: BP 157/63; PULSE 65; RESP 18; TEMP 98
--- NOTE | 2017-07-29 06:34 | CARD ---
APPROVED REPORT EXAM: Transesophageal echocardiogram with color flow Doppler. INDICATION Aortic Valve Disease Mitral Valve E/A ratio0.0 TDI E/Lateral E'0.0E/Medial E'0.0 Reason For Test : To evaluate Aortic valve PROCEDURE After obtaining informed consent, patient underwent transesophageal echo in the [employer]. Type of Sedation : Conscious Sedation Sedation was provided by anesthesiologist. Sedation was achieved with intravenously. The JALIL was performed complications. Throughout the procedure, the blood pressure, pulse oximetry, cardiac rhythm, and rate were monitored. The patient tolerated the procedure without adverse effects. Recovery from conscious sedation was uneventful and vital signs were stable. LEFT VENTRICLE The left ventricle is normal size. The left ventricular function is normal. The left ventricular ejection fraction is within the normal range. There is normal LV segmental wall motion. No left ventricle thrombus noted on this study. There is no ventricular septal defect visualized. RIGHT VENTRICLE The right ventricle is normal size. The right ventricular systolic function is normal. ATRIA The left atrium size is normal. The right atrium size is normal. Inter atrial septum is naeurysmal . No bubble cross over noted AORTIC VALVE Fibrosclerotic Aortic valve. Hair projections noted. Most likley Lambl's excrescences No aortic regurgitation is present. There is no aortic valvular stenosis. There is no aortic valvular vegetation. MITRAL VALVE The mitral valve is normal in structure. There is no mitral valve stenosis. Mitral regurgitation is mild. TRICUSPID VALVE The tricuspid valve is normal in structure. There is mild tricuspid regurgitation. There is no tricuspid valve stenosis. PULMONIC VALVE The pulmonary valve is normal in structure. GREAT VESSELS The aortic root is normal in size. <Conclusion> The left ventricular function is normal. The left ventricular ejection fraction is within the normal range. The right ventricular systolic function is normal. Inter atrial septum is naeurysmal . No bubble cross over noted Mitral regurgitation is mild. There is no tricuspid valve stenosis. The aortic root is normal in size. Fibrosclerotic Aortic valve. Hair projections noted. Most likley Lambl's excrescences
== END 2017-07-23 15:08 | disposition home or self-care (01) ==
LOC: C.CATHLAB 09:12
PROVIDERS: ATTEND Internal Medicine Cardiovascular Disease
DX: I35.9 Nonrheumatic aortic valve disorder, unspecified (principal); R93.1 Abnormal findings on diagnostic imaging of heart and coronary circulation; I10 Essential (primary) hypertension
CPT/HCPCS: 82948; 93312; 94770; J2001; J2704

== ENCOUNTER 2017-08-01 10:46 | Emergency (ER) | payer MEDICARE ==
[2017-08-01 10:46] VITALS: BMI 24.7
--- NOTE | 2017-08-01 11:03 | C.PDOC ---
History Of Present Illness 82 y/o female accompanied with her granddaughter, c/o nausea and vomiting since her JALIL 2 days ago. Patient is tolerating liquids and reports burning, substernal chest pain associated with vomiting. Patient notes that every time she goes under anaesthesia she becomes nauseous post-procedure. Reports normal bowel movements. Denies abdominal pain or constipation. No fever or chills. Time Seen by Provider: 08/01/17 11:03 Chief Complaint (Nursing): Abdominal Pain History Per: Patient, Family (Granddaugther) History/Exam Limitations: no limitations Onset/Duration Of Symptoms: Days (2) Current Symptoms Are (Timing): Still Present Severity: Mild Additional History Per: Patient Past Medical History Reviewed: Historical Data, Nursing Documentation, Vital Signs Vital Signs: Last Vital Signs Temp 98 F 08/01/17 10:49 Pulse 70 08/01/17 13:36 Resp 15 08/01/17 13:36 BP 160/77 H 08/01/17 13:36 Pulse Ox 99 08/01/17 14:14 - Medical History PMH: Anxiety, Colonic Polyps, Gall Bladder Disease, HTN, Hypercholesterolemia, Peripheral Edema (SOMETIMES) Denies: Chronic Kidney Disease (QUESTION NOTED) Surgical History: Appendectomy, Cholecystectomy Family History: States: Unknown Family Hx - Social History Hx Alcohol Use: No Hx Substance Use: No Review Of Systems Except As Marked, All Systems Reviewed And Found Negative. Constitutional: Negative for: Fever, Chills Cardiovascular: Positive for: Chest Pain (Burning, substernal chest pain) Gastrointestinal: Positive for: Nausea, Vomiting. Negative for: Abdominal Pain , Constipation Physical Exam - Physical Exam Appears: Non-toxic, No Acute Distress Skin: Warm, Dry Head: Atraumatic, Normacephalic Chest: Symmetrical, No Tenderness Cardiovascular: Rhythm Regular (S1 and S2 normal, normal rate), No Murmur Respiratory: Normal Breath Sounds, No Rales, No Rhonchi, No Wheezing Gastrointestinal/Abdominal: Soft, No Tenderness Neurological/Psych: Oriented x3 ED Course And Treatment - Laboratory Results Result Diagrams: 08/01/17 12:20 08/01/17 12:20 ECG: Interpreted By Pa ECG Rhythm: Sinus Rhythm ECG Interpretation: Normal, No Acute Changes Interpretation Of ECG: nsr,occas pacs,otherwise neg O2 Sat by Pulse Oximetry: 99 (RA) Pulse Ox Interpretation: Normal Medical Decision Making Medical Decision Making: Impression: * Nausea and vomiting since her JALIL 2 days ago. Reports burning, substernal chest pain associated with vomiting. Plans: * Blood labs * Zofran * Protonix * IV fluids * EKG 14:00. GI cocktail Ordered. Disposition - Disposition Referrals: [facility] [Outside] Disposition: HOME/ ROUTINE Disposition Time: 14:49 Condition: FAIR Additional Instructions: take protonix as prescribed,antinausea meds as needed Prescriptions: Pantoprazole Sodium [Protonix] 40 mg PO DAILY #10 tab Forms: [employer] (Guyanese), Gen Discharge Inst Cook Islander, [employer] (Cook Islander) Print Language: HEBREW - Clinical Impression Clinical Impression: Heartburn symptom, GERD (gastroesophageal reflux disease) - Scribe Statement The provider has reviewed the documentation as recorded by the Scribe Whitney capellan All medical record entries made by the Scribe were at my direction and personally dictated by me. I have reviewed the chart and agree that the record accurately reflects my personal performance of the history, physical exam, medical decision making, and the department course for this patient. I have also personally directed, reviewed, and agree with the discharge instructions and disposition.
[2017-08-01] MEDS ORDERED: Aluminum Hydroxide/Magnesium Hydroxide Susp (30 mL) PO STA ×2 (12:12→14:05)
[2017-08-01] MEDS ORDERED: Sodium Chloride 0.9% 1,000 ML IV ONE (12:12)
[2017-08-01] MEDS ORDERED: Sodium Chloride 0.9% 1,000 ML ONE (12:19)
[2017-08-01 12:29] LABS: BASO # 0.1 K/uL (0.0-0.2); BASO % 0.5 % (0.0-2.0); EOS # 0.1 K/uL (0.0-0.7); EOS % 0.7 % (0.0-4.0); HEMATOCRIT 36.6 % (34.0-47.0); LYMPH # 1.9 K/uL (1.0-4.3); MEAN CELL VOLUME 85.8 fL (81.0-99.0); MEAN CORPUSCULAR HEMOGLOBIN 28.9 pg (27.0-31.0); MEAN CORPUSCULAR HGB CONC 33.7 g/dL (33.0-37.0); MONO # 0.6 K/uL (0.0-0.8); MONO % 6.7 % (0.0-10.0); RED CELL DISTRIBUTION WIDTH 13.3 % (11.5-14.5); WHITE BLOOD COUNT 9.4 K/uL (4.8-10.8)
--- NOTE | 2017-08-01 12:30 | RAD ---
HISTORY: abd pain COMPARISON: Chest xray performed 02/11/14 TECHNIQUE: Chest, one view. FINDINGS: Examination limited by habitus and hypoinflation. LUNGS: Mild pulmonary venous congestion. No focal consolidation. Please note that chest x-ray has limited sensitivity for the detection of pulmonary masses. PLEURA: No significant pleural effusion identified. No definite pneumothorax . CARDIOVASCULAR: Heart size appears within normal limits. Atherosclerotic calcifications of the aorta. OSSEOUS STRUCTURES: Degenerative changes. VISUALIZED UPPER ABDOMEN: Multiple upper abdominal surgical clips. OTHER FINDINGS: None. IMPRESSION: Mild pulmonary venous congestion.
[2017-08-01 12:39] LABS: POTASSIUM 3.6 mmol/L (3.6-5.2)
[2017-08-01 12:41] LABS: ALB/GLOB RATIO 1.1 (1.0-2.1); BILIRUBIN,TOTAL 0.8 mg/dL (0.2-1.3)
[2017-08-01 12:42] LABS: CALCIUM 9.8 mg/dl (8.6-10.4)
[2017-08-01 12:53] LABS: TROPONIN I 0.013 ng/mL (0.00-0.120)
[2017-08-01] MEDS ORDERED: Belladonna-Phenobarbital PO STA (14:05)
[2017-08-01] MEDS ORDERED: Aluminum Hydroxide/Magnesium Hydroxide Susp (30 mL) ONE (14:11)
[2017-08-01] MEDS ORDERED: Belladonna-Phenobarbital ONE (14:11)
[2017-08-01 15:09] VITALS: RESP 18; TEMP 97.8
[2017-08-01 15:11] VITALS: BP 168/77; PULSE 72
[2017-08-01 15:41] VITALS: O2SAT 99
--- NOTE | 2017-08-02 13:11 | CARD ---
APPROVED REPORT EKG Measurement Heart [id number] <Conclusion> Sinus rhythm with premature supraventricular complexes Otherwise normal ECG
== END 2017-08-01 15:16 | disposition home or self-care (01) ==
LOC: C.ER 10:46
DX: K21.9 Gastro-esophageal reflux disease without esophagitis (principal); R12 Heartburn
CPT/HCPCS: 71010; 80053; 83690; 84484; 85025; 93005; 96361; 96374; 96375; 99285; C9113; J2405; J7040

== ENCOUNTER 2017-08-13 06:48 | Day surgery (SDC) | payer MEDICARE ==
[2017-08-13 07:43] VITALS: BMI 23.6
[2017-08-13 08:04] VITALS: O2SAT 100
[2017-08-13] MEDS ORDERED: Propofol 10 mg/ml Inj (20 ML) ONE (08:07)
[2017-08-13] MEDS ORDERED: Lactated Ringer's 1,000 ML IV ONE (08:15)
--- NOTE | 2017-08-13 08:15 | CP.SDSHP ---
Same Day Surgery H & P - History Proposed Procedure: EGD colonoscopy Pre-Op Diagnosis: Epigastric pain, rectal polyp with carcinoma in situ - Previous Medical/Surgical History Cardiac: Hypertension Endocrine/Metabolic: Diabetes Previous Surgical History: Gastric ulcer, cholecystectomy, appendectomy, oophorectomy - Allergies Allergies: Allergies No Known Allergies Allergy (Verified 08/13/17 07:43) - Current Medications Current Medications: See reconciliation sheet - Physical Exam General Appearance: WD WN female in NAD Vital Signs: Vital Signs 08/13/17 07:35 Temperature 97.0 F L Pulse Rate 61 Respiratory 19 Rate Blood Pressure 177/56 H O2 Sat by Pulse 100 Oximetry Mental Status: Alert & Oriented x3 Neuro: WNL Heart: WNL Lungs: WNL GI: WNL - {Optional Preform as Required} Abdomen: WNL - Impression Impression: Epigastric pain, history of rectal polyp Pt. Evaluated Today:Candidate for Anesthesia & Procedure: Yes - Date & Time Date: 08/13/17 Time: 08:15 Short Stay Discharge - Short Stay Discharge Admitting Diagnosis/Reason for Visit: P/H MALIGNANCY Disposition: HOME/ ROUTINE
[2017-08-13] MEDS ORDERED: Lactated Ringer's 500 ML IV SCH (08:30)
[2017-08-13 09:23] VITALS: TEMP 98
[2017-08-13 10:27] VITALS: BP 193/65; PULSE 55; RESP 19
== END 2017-08-13 10:25 | disposition home or self-care (01) ==
LOC: C.ENDO 06:48
PROVIDERS: ATTEND Internal Medicine Gastroenterology
DX: K62.1 Rectal polyp (principal); Z85.048 Personal history of other malignant neoplasm of rectum, rectosigmoid junction, and anus
CPT/HCPCS: 45388; 82948; 88305; J2704; J7120

== ENCOUNTER 2017-09-07 07:10 | Day surgery (SDC) | payer MEDICARE ==
--- NOTE | 2017-09-07 08:06 | CP.SDSHP ---
Same Day Surgery H & P - Previous Medical/Surgical History Cardiac: Hypertension Endocrine/Metabolic: Diabetes - Allergies Allergies: Allergies No Known Allergies Allergy (Verified 09/07/17 07:42) - Date & Time Date: 09/07/17 Time: 08:06 Short Stay Discharge - Short Stay Discharge Admitting Diagnosis/Reason for Visit: RECTAL MASS Disposition: HOME/ ROUTINE
[2017-09-07 08:17] VITALS: O2SAT 100
[2017-09-07] MEDS ORDERED: Lactated Ringer's 1,000 ML IV ONE (08:34)
[2017-09-07] MEDS ORDERED: Lidocaine Hydrochloride 5 ML INJ ONE (08:36)
[2017-09-07] MEDS ORDERED: Etomidate 20 mg/10ml Inj IV ONE (08:36)
[2017-09-07] MEDS ORDERED: Propofol 10 mg/ml Inj (20 ML) ONE (08:36)
[2017-09-07] MEDS ORDERED: Albuterol-Ipratrop 3 mg / 0.5 (3 ml) UD INH STA (09:53)
[2017-09-07] MEDS ORDERED: Sodium Chloride 0.9% 1,000 ML IV SCH (10:15)
[2017-09-07 10:38] LABS: BASO # 0.1 K/uL (0.0-0.2); BASO % 0.8 % (0.0-2.0); EOS # 0.1 K/uL (0.0-0.7); EOS % 1.4 % (0.0-4.0); HEMATOCRIT 32.5 % (34.0-47.0); LYMPH # 2.3 K/uL (1.0-4.3); LYMPH % 30.7 % (20.0-40.0); MEAN CELL VOLUME 85.1 fL (81.0-99.0); MEAN CORPUSCULAR HEMOGLOBIN 28.6 pg (27.0-31.0); MEAN CORPUSCULAR HGB CONC 33.6 g/dL (33.0-37.0); MEAN PLATELET VOLUME 9.3 fL (7.2-11.7); MONO # 0.7 K/uL (0.0-0.8); MONO % 9.4 % (0.0-10.0); NRBC % 0.1 % (0.0-2.0); RED CELL DISTRIBUTION WIDTH 13.6 % (11.5-14.5); WHITE BLOOD COUNT 7.5 K/uL (4.8-10.8)
--- NOTE | 2017-09-07 10:51 | RAD ---
HISTORY: Chest pain COMPARISON: 08/01/2017 FINDINGS: LUNGS: No active pulmonary disease. PLEURA: No significant pleural effusion identified, no pneumothorax apparent. CARDIOVASCULAR: Normal. OSSEOUS STRUCTURES: No significant abnormalities. VISUALIZED UPPER ABDOMEN: Normal. OTHER FINDINGS: None. IMPRESSION: No active disease.
[2017-09-07 11:10] LABS: ALB/GLOB RATIO 1.4 (1.0-2.1); BILIRUBIN,TOTAL 1.1 mg/dL (0.2-1.3); CALCIUM 8.7 mg/dl (8.6-10.4); POTASSIUM 3.7 mmol/L (3.6-5.2); TOTAL PROTEIN 6.3 g/dL (6.3-8.3)
--- NOTE | 2017-09-07 12:00 | CP.PCM.CON ---
History of Present Illness - History of Present Illness History of Present Illness: Pt is an 82 yo female ho Dm/htn sp flex sigmodoscopy. After the procedure, a rapid response was called due to chest pressure. Upon arrival, pt was breathing rapidly and stating her mouth was dry. VS were stable with a sp02 of 100% on 3l nc, her 70's and bp 176/69. Pt was examined and interviewed. she stated stated dry cotton mouth feeling and slight chest discomfort. An EKG was ordered and was insignficant. CXR was wnl. Labs wnl. Explained to family and patient that side effect secondary to Etomidate and glyco adminstered during procedure. Recommend patient follow up with Dr. Kaur in his office as an outpatient. Past Patient History - Tetanus Immunizations Tetanus Immunization: Unknown - Past Medical History & Family History Past Medical History?: Yes - Past Social History Smoking Status: Never Smoked - CARDIAC Hx Cardiac Disorders: Yes Hx Angina: Yes Hx Heart Attack: No Hx Hypercholesterolemia: Yes Hx Hypertension: Yes Hx Pacemaker: No Hx Peripheral Edema: Yes (SOMETIMES) Other/Comment: JALIL LAST MONTH - PULMONARY Hx Respiratory Disorders: No - NEUROLOGICAL Hx Neurological Disorder: No HX Cerebrovascular Accident: No Hx Dizziness: Yes Hx Transient Ischemic Attacks (TIA): No - HEENT Hx HEENT Problems: Yes Hx Cataracts: Yes - RENAL Hx Chronic Kidney Disease: No (QUESTION NOTED) Hx Kidney Stones: Yes Hx Renal Failure: No - ENDOCRINE/METABOLIC Hx Endocrine Disorders: Yes Hx Diabetes Mellitus Type 2: Yes - HEMATOLOGICAL/ONCOLOGICAL Hx Blood Disorders: No Hx Blood Transfusions: No - INTEGUMENTARY Hx Dermatological Problems: No - MUSCULOSKELETAL/RHEUMATOLOGICAL Hx Musculoskeletal Disorders: Yes Hx Arthritis: Yes Hx Falls: Yes (HURT HER KNEE 5 YEARS AGO) Hx Fractures: No Hx Osteoarthritis: Yes - GASTROINTESTINAL Hx Gastrointestinal Disorders: Yes Hx Gall Bladder Disease: Yes Hx Gastritis: Yes Hx Gastroesophageal Reflux: Yes Hx Ulcer: Yes Other/Comment: HX OF APPENDECTOMY - GENITOURINARY/GYNECOLOGICAL Hx Genitourinary Disorders: No - PSYCHIATRIC Hx Psychophysiologic Disorder: No Hx Anxiety: Yes Hx Substance Use: No - SURGICAL HISTORY Hx Surgeries: Yes Hx Appendectomy: Yes Hx Breast Biopsy: Yes Hx Cataract Extraction: Yes (GIL.) Hx Cardiac Catheterization: Yes Hx Cholecystectomy: Yes Hx Tubal Ligation: Yes Other/Comment: OOPHRECTOMY, JALIL, PEPTIC ULCER SX, - ANESTHESIA Hx Anesthesia: Yes Hx Anesthesia Reactions: No Hx Malignant Hyperthermia: No Meds Allergies/Adverse Reactions: Allergies Allergy/AdvReac Type Severity Reaction Status Date / Time No Known Allergies Allergy Verified 09/07/17 07:42 - Medications Medications: Current Medications Sodium Chloride (Sodium Chloride 0.9%) 1,000 mls @ 100 mls/hr IV .Q10H JOSÉ ANTONIO Results - Vital Signs Recent Vital Signs: Last Vital Signs Temp 96.9 F L 09/07/17 09:10 Pulse 69 09/07/17 11:40 Resp 12 09/07/17 11:40 BP 151/63 H 09/07/17 11:40 Pulse Ox 100 09/07/17 11:40 - Labs Result Diagrams: 09/07/17 10:27 09/07/17 10:08 Labs: Laboratory Results - last 24 hr 09/07/17 09/07/17 09/07/17 07:28 10:08 10:27 WBC 7.5 RBC 3.82 Hgb 10.9 L Hct 32.5 L MCV 85.1 MCH 28.6 MCHC 33.6 RDW 13.6 Plt Count 183 MPV 9.3 Neut % (Auto) 57.7 Lymph % (Auto) 30.7 Long % (Auto) 9.4 Eos % (Auto) 1.4 Baso % (Auto) 0.8 Neut # 4.3 Lymph # 2.3 Long # 0.7 Eos # 0.1 Baso # 0.1 Sodium 137 Potassium 3.7 Chloride 102 Carbon Dioxide 25 Anion Gap 14 BUN 26 H Creatinine 1.5 H Est GFR ( Amer) 40 Est GFR (Non-Af Amer) 33 POC Glucose (mg/dL) 194 H Random Glucose 152 H Calcium 8.7 Total Bilirubin 1.1 AST 33 ALT 40 Alkaline Phosphatase 83 Total Creatine Kinase CK-MB (Mass) Troponin I, Quant Total Protein 6.3 Albumin 3.7 Globulin 2.7 Albumin/Globulin Ratio 1.4 09/07/17 10:27 WBC RBC Hgb Hct MCV MCH MCHC RDW Plt Count MPV Neut % (Auto) Lymph % (Auto) Long % (Auto) Eos % (Auto) Baso % (Auto) Neut # Lymph # Long # Eos # Baso # Sodium Potassium Chloride Carbon Dioxide Anion Gap BUN Creatinine Est GFR ( Amer) Est GFR (Non-Af Amer) POC Glucose (mg/dL) Random Glucose Calcium Total Bilirubin AST ALT Alkaline Phosphatase Total Creatine Kinase 43 CK-MB (Mass) 0.65 Troponin I, Quant < 0.0120 Total Protein Albumin Globulin Albumin/Globulin Ratio
[2017-09-07 12:24] VITALS: BP 159/60; PULSE 66; RESP 15; TEMP 98
--- NOTE | 2017-09-07 22:14 | PCM.RRT ---
<Enmanuel Gonzalez - Last Filed: 09/09/17 18:30> STEAMFITTER Nurses Assessment - Situation Date: 09/07/17 Time STEAMFITTER was called: 09:40 STEAMFITTER Responder Arrival Time:: 09:41 STEAMFITTER Location:: Endoscopy Room Number: ENDOSCOPY STEAMFITTER Reason for Call: Chest Pain STEAMFITTER Called By: RN - IV IV Inserted during STEAMFITTER?: Yes - Respiratory STEAMFITTER Delivery Method: Nasal Cannula @L/min Oxygen Flow Rate: 3 Received Nebulizer Treatments: Yes Was the Patient Ventilated with Bag/Mask 100% O2?: No Secretions Suctioned?: No Was the Patient Intubated?: No Was the Patient Placed on a Ventilator?: No - Diagnostic Test Ordered EKG: Yes Chest X-Ray: Yes CT Scan: No - Stat Labs Ordered STEAMFITTER Stat Labs Ordered: CBC, BMP, TROPONIN CPR started during STEAMFITTER?: No - Vital Signs Vital Signs: Rapid Response Vital Sign Blood Pressure 166/78 Pulse Rate 62 Respiratory Rate 15 Oxygen Saturation 100 - Time STEAMFITTER Ended Time STEAMFITTER Ended: 10:10 - Vital Signs at end of STEAMFITTER Vital Signs at end of STEAMFITTER: Rapid Response End Vital Sign Blood Pressure 213/69 Pulse Rate 64 Respiratory Rate 13 O2 Sat by Pulse Oximetry 100 - Recommendations Notifications: Attending Physician, Consultations - Respiratory Oxygen Delivery Method: Nasal Cannula @L/min Oxygen Flow Rate: 3 <Jeanna Tellez V - Last Filed: 09/09/17 20:34> STEAMFITTER Nurses Assessment - Vital Signs Vital Signs: Rapid Response Vital Sign Blood Pressure 166/78 Pulse Rate 62 Respiratory Rate 15 Oxygen Saturation 100 - Vital Signs at end of STEAMFITTER Vital Signs at end of STEAMFITTER: Rapid Response End Vital Sign Blood Pressure 213/69 Pulse Rate 64 Respiratory Rate 13 O2 Sat by Pulse Oximetry 100 Attending/Attestation - Attestation I have personally seen and examined this patient.: Yes I have fully participated in the care of the patient.: Yes I have reviewed all pertinent clinical information, including history, physical exam and plan: Yes Notes (Text): This is a late computer entry for for 09/07/17. Brief Hospitalist Note. STEAMFITTER called for chest pain s/p 45 mins after colorectal procedure. 82 year old Female reports chest pain tightness, dry mouth, and myoclonus. Patient seen with anesthesia, reports patient had received ethomidate during the procedure common side effects of dry mouth and myoclonus. During the procedure, SBP: 170-180s per anesthesia. patient is awake, alert, speaking and understanding in [place]. patient is not hypoglycemic. Patient has been off her Aspirin for a week for the procedure. Patient had EKG and JARED drawn. EKG does not show change from prior and JARED negative. Chest xray did not show acute findings. Patient was reportedly anxious prior to procedure. patient is not immobile, surgery was only for 10-[address] Gomez at bedside, low suspicion for PE. I let her log roper, Dr. Kaur know per request of the patient. I also spoke with PMD: Dr. Jaramillo as well. patient given fluid bolus per anesthesia; patient give maintenace IV fluids for hydration. Following STEAMFITTER, patient chest pain resolved and anxiety calmed. Patient given dose of Hydralzine 10mg IV X1 given elevated SBP. General; AAO X3, anxious at bedside, breathing and talking well Heart: S1, S2, regular Lungs: CTA b/l no W/R/R Abdomen: soft NT/ND + BS X4 i spoke with patient's daughter Shayna at bedside as well. Questions answered at bedside. Following STEAMFITTER, vitals improved not noted in the STEAMFITTER note to SBP: 150s.
== END 2017-09-07 12:22 | disposition home or self-care (01) ==
LOC: C.ENDO 07:10
PROVIDERS: ATTEND Colon & Rectal Surgery
DX: K62.1 Rectal polyp (principal); K64.8 Other hemorrhoids; K64.1 Second degree hemorrhoids
CPT/HCPCS: 36415; 45388; 71010; 80053; 82948; 84484; 85025; 88305; J0360; J2704; J7040; J7120

== ENCOUNTER 2017-10-08 06:44 | Day surgery (SDC) | payer MEDICARE ==
[2017-10-08 07:08] VITALS: BMI 23.8
[2017-10-08] MEDS ORDERED: Lactated Ringer's 500 ML IV SCH (08:15)
[2017-10-08] MEDS ORDERED: Lidocaine Hydrochloride 5 ML INJ ONE (08:15)
[2017-10-08] MEDS ORDERED: Propofol 10 mg/ml Inj (20 ML) ONE ×2 (08:15)
[2017-10-08] MEDS ORDERED: Lactated Ringer's 500 ML IV ONE ×3 (08:32)
--- NOTE | 2017-10-08 08:46 | CP.SDSHP ---
Same Day Surgery H & P - History Proposed Procedure: EGD Pre-Op Diagnosis: Nausea and vomiting - Previous Medical/Surgical History Cardiac: Hypertension Endocrine/Metabolic: Diabetes Previous Surgical History: Gastric ulcer, tubal ligation, cholecystectomy, oophorectomy, appendectomy - Allergies Allergies: Allergies etomidate Allergy (Verified 10/08/17 07:10) ANAPHYLAXIS - Current Medications Current Medications: See reconciliation sheet - Physical Exam General Appearance: WD WN female in NAD Vital Signs: Vital Signs 10/08/17 07:08 Temperature 97.3 F L Pulse Rate 63 Respiratory 19 Rate Blood Pressure 182/71 H O2 Sat by Pulse 99 Oximetry Mental Status: Alert & Oriented x3 Neuro: WNL Heart: WNL Lungs: WNL GI: WNL - {Optional Preform as Required} Abdomen: WNL - Impression Impression: Nausea and vomiting Pt. Evaluated Today:Candidate for Anesthesia & Procedure: Yes - Date & Time Date: 10/08/17 Time: 08:46 Short Stay Discharge - Short Stay Discharge Admitting Diagnosis/Reason for Visit: NAUSEA W/VOMITING Disposition: HOME/ ROUTINE
[2017-10-08 08:50] VITALS: O2SAT 100
[2017-10-08 09:19] VITALS: TEMP 98.2
[2017-10-08 10:28] VITALS: BP 167/62; PULSE 54; RESP 15
== END 2017-10-08 09:52 | disposition home or self-care (01) ==
LOC: C.ENDO 06:44
PROVIDERS: ATTEND Internal Medicine Gastroenterology
DX: K29.50 Unspecified chronic gastritis without bleeding (principal); K44.9 Diaphragmatic hernia without obstruction or gangrene; K31.89 Other diseases of stomach and duodenum; Z87.19 Personal history of other diseases of the digestive system; Z90.49 Acquired absence of other specified parts of digestive tract; E11.9 Type 2 diabetes mellitus without complications
CPT/HCPCS: 43239; 82948; 88305; 88312; 88313; 88342; J2704; J7120

== ENCOUNTER 2018-08-21 17:46 | Inpatient (IN) | payer MEDICARE ==
[2018-08-21 17:46] VITALS: BMI 23.8
--- NOTE | 2018-08-21 18:04 | C.PDOC ---
History Of Present Illness 83 year old female was sent to the ED by PMD for evaluation of right-sided numbness. Per family member the patient experienced sudden onset numbness and heaviness to the right arm and leg associated with dizziness after walking a few blocks 3 days ago which has since resolved. The family member also notes the patient has intermittent left-sided chest pain which has also resolved. Denies headache, fever, nausea, vomiting, and any other associated symptoms. <Amara Owen - Last Filed: 08/21/18 18:58> History Per: Family (member.) History/Exam Limitations: no limitations Onset/Duration Of Symptoms: Days Current Symptoms Are (Timing): Gone <Amara Owen - Last Filed: 08/21/18 18:58> <Yuliya Fish - Last Filed: 08/21/18 19:44> Time Seen by Provider: 08/21/18 18:03 Chief Complaint (Nursing): Weakness/Neurological Deficit Past Medical History Reviewed: Historical Data, Nursing Documentation, Vital Signs - Medical History PMH: Anxiety, Arthritis, Colonic Polyps (VERY LARGE POLYP), Gastritis, Gall Bladder Disease, HTN, Hypercholesterolemia, Kidney Stones, Peripheral Edema (SOMETIMES), Chronic Kidney Disease (QUESTION NOTED), Seizures (SEIZURE LIKE AFTER ANESTHESIA) Denies: Fractures, TIA Surgical History: Appendectomy, Cholecystectomy, Endoscopy Denies: Pacemaker Family History: States: Unknown Family Hx - Social History Hx Alcohol Use: No Hx Substance Use: No <BraydenAmara - Last Filed: 08/21/18 18:58> Vital Signs: Last Vital Signs Temp 98 F 08/21/18 18:37 Pulse 78 08/21/18 18:37 Resp 18 08/21/18 18:37 BP 177/69 H 08/21/18 18:37 Pulse Ox 98 08/21/18 18:58 <Yuliya Fish - Last Filed: 08/21/18 19:44> Review Of Systems Except As Marked, All Systems Reviewed And Found Negative. Constitutional: Negative for: Fever Cardiovascular: Positive for: Chest Pain (over the left side.) Gastrointestinal: Negative for: Nausea, Vomiting Neurological: Positive for: Numbness (to the right arm and leg. ), Dizziness. Negative for: Headache <Amara Owen - Last Filed: 08/21/18 18:58> Physical Exam - Physical Exam Appears: Well, Non-toxic, No Acute Distress Skin: Normal Color, Warm, Dry Head: Atraumatic, Normacephalic Eye(s): bilateral: Normal Inspection Oral Mucosa: Moist Neck: Normal ROM, Supple Chest: Symmetrical, No Deformity Cardiovascular: Rhythm Regular, No Murmur Respiratory: Normal Breath Sounds, No Rales, No Rhonchi, No Wheezing Gastrointestinal/Abdominal: Normal Exam, Soft, No Tenderness Extremity: Normal ROM (x4 ), No Pedal Edema, No Calf Tenderness, Capillary Refill (less than 2 seconds.), No Deformity, No Swelling Neurological/Psych: Oriented x3, Normal Speech, Normal Motor, Normal Sensation, Normal Reflexes <BraydenAmara - Last Filed: 08/21/18 18:58> ED Course And Treatment - Laboratory Results Result Diagrams: 08/21/18 18:25 08/21/18 18:25 O2 Sat by Pulse Oximetry: 98 (RA) Pulse Ox Interpretation: Normal <BraydenAmara - Last Filed: 08/21/18 18:58> - Laboratory Results Result Diagrams: 08/21/18 18:25 08/21/18 18:25 <Yuliya Fish - Last Filed: 08/21/18 19:44> Progress - Re-Evaluation Re-evaluation Note: 08/21/18 18:03 D/W DR VICTORIA, REFFERED BY DR ARAUZ PT TO BE ADMITTED TO DR KATHLEEN - Data Reviewed Data Reviewed: Lab, Diagnostic imaging, EKG, Old records <BraydenAmara - Last Filed: 08/21/18 18:58> NIHSS Stroke Scale 2 - Date/Time Evaluation Performed Date Performed: 08/21/18 Time Performed: 18:15 When Was NIHSS Performed: Baseline - How Severe is the Stroke Level of Consciousness: 0=Alert LOC to Questions: 0=Both comments correct LOC to commands: 0=Obeys both correctly Best Gaze: 0=Normal Visual: 0=No visual loss Facial: 0=Normal Motor Arm - Left: 0=No drift Motor Arm - Right: 0=No drift Motor Leg - Left: 0=No drift Motor Leg - Right: 0=No drift Limb Ataxia: 0=Absent Sensory: 0=Normal Best Language: 0=No aphasia Dysarthia: 0=Normal articulation Extinction & Inattention (Neglect): 0=Normal, no object Score: 0 <Amara Owen - Last Filed: 10/31/18 18:58> rTPA Inclusion/Exclusion - Refusal of Treatment Patient Refused Treatment: No - Inclusion Criteria for Altepase Patient is 18 years or Older: Yes The Clinical Diagnosis of Ischemic Stroke That is Causing a Potentially Disabling Neurological Deficit: No Time of Onset is Well Established to be Less Than 270 Minute Before Treatment Would Begin: No Risk/Benefit Discussed With Patient/Family Member Present: No - Exclusion Criteria for Altepase Uncontrolled Hypertension at Time of Treatment (Systolic BP above 185 or Diastol ic BP above 110 mmHg): Yes Active Internal Bleeding: No Known Bleeding Diathesis Including but Not Limited to: Platelets Below 100,000/mm,PTT Above 40 sec After Heparin Use, Current Use of Oral Anitcoagulant With INR Greater Than 1.7 or PT Greater Than 15 secs: No Evidence of an Intracranial Hemorrhage: No Evidence of Major Acute Infarct With Signs Greater Than 1/3 MCA Territory: No Suspicion of Subarachnoid Hemorrhage on Pretreatment Evaluation Even if CT Head Negative For Hemorrhage: No - Warning to TPA With Conditions Following Conditions Weighed Against Anticipated Benefit: Yes Condition: Stroke Serevity Too Mild, Age Greater Than 75 years Additional Condition (For 3-4.5 Hour Window): Age Greater Than 80 <Amara Owen - Last Filed: 08/21/18 18:58> - Refusal of Treatment Patient Refused Treatment: No - Inclusion Criteria for Altepase Patient is 18 years or Older: Yes The Clinical Diagnosis of Ischemic Stroke That is Causing a Potentially Disabl ing Neurological Deficit: No Risk/Benefit Discussed With Patient/Family Member Present: No - Exclusion Criteria for Altepase Uncontrolled Hypertension at Time of Treatment (Systolic BP above 185 or Diastolic BP above 110 mmHg): Yes Active Internal Bleeding: No Known Bleeding Diathesis Including but Not Limited to: Platelets Below 100,000/mm,PTT Above 40 sec After Heparin Use, Current Use of Oral Anitcoagulant With INR Greater Than 1.7 or PT Greater Than 15 secs: No Evidence of an Intracranial Hemorrhage: No Evidence of Major Acute Infarct With Signs Greater Than 1/3 MCA Territory: No Suspicion of Subarachnoid Hemorrhage on Pretreatment Evaluation Even if CT Head Negative For Hemorrhage: No - Warning to TPA With Conditions Following Conditions Weighed Against Anticipated Benefit: Yes Condition: Rapid Improvement Additional Condition (For 3-4.5 Hour Window): Age Greater Than 80 <Yuliya Fish - Last Filed: 08/21/18 19:44> Medical Decision Making Medical Decision Making: Plan: -Blood sent. -EKG Portable CXR -Head CT W/o contrast -Aspirin -Glucose POC 6:18pm Left a message on Dr. Kathleen's cell phone number. <Amara Owen Last Filed: 08/21/18 18:58> Disposition Counseled Patient/Family Regarding: Diagnosis - Disposition Disposition Time: 19:00 <Amara Owen - Last Filed: 08/21/18 18:58> Discussed With : Izabella Kathleen Comment: accepted the pt on his service and took over the care at 7:41 PM Counseled Patient/Family Regarding: Studies Performed, Diagnosis <Yuliya Fish - Last Filed: 08/21/18 19:44> - Disposition Disposition: HOSPITALIZED Condition: FAIR Forms: [facility] (Faroese) - Clinical Impression Clinical Impression: TIA (transient ischemic attack), Chest pain - Scribe Statement The provider has reviewed the documentation as recorded by the Scribe (Ashley Aguilera) Provider Attestation: All medical record entries made by the Scribe were at my direction and personally dictated by me. I have reviewed the chart and agree that the record accurately reflects my personal performance of the history, physical exam, medical decision making, and the department course for this patient. I have also personally directed, reviewed, and agree with the discharge instructions and disposition. <Amara Owen - Last Filed: 08/21/18 18:58> Physician Patient Turnover Patient Signed Over To: Yuliya Fish Handoff Comments: FU LABS, CT, DISPO <Amara Owen - Last Filed: 08/21/18 18:58> Decision To Admit <Amara Owen - Last Filed: 08/21/18 18:58> - Pt Status Changed To: Hospital Disposition Of: Inpatient - Admit Certification Admit to Inpatient:: After my assessment, the patient will require hospitalization for at least two midnights. This is because of the severity of symptoms shown, intensity of services needed, and/or the medical risk in this patient being treated as an outpatient. - InPatient: Physician Admission Certification: I certify that this patient requires 2 or more midnights of care for the following reason:: After my assessment, the patient will require hospitalization for at least two midnights. This is because of the severity of symptoms shown, intensity of services needed, and/or the medical risk in this patient being treated as an outpatient. - . Bed Request Type: Telemetry Admitting Physician: Izabella Kathleen <Yuliya Fish - Last Filed: 08/21/18 19:44> - . Patient Diagnosis: TIA (transient ischemic attack), Chest pain
[2018-08-21 18:33] LABS: BASO # 0.1 K/uL (0.0-0.2); BASO % 1.3 % (0.0-2.0); EOS # 0.1 K/uL (0.0-0.7); HEMOGLOBIN 10.2 g/dL (11.0-16.0); LYMPH # 2.3 K/uL (1.0-4.3); LYMPH % 22.5 % (20.0-40.0); MEAN CORPUSCULAR HEMOGLOBIN 27.3 pg (27.0-31.0); MEAN CORPUSCULAR HGB CONC 32.8 g/dL (33.0-37.0); MONO # 0.9 K/uL (0.0-0.8); MONO % 8.9 % (0.0-10.0); NEUT # 6.7 K/uL (1.8-7.0); NEUT % 66.3 % (50.0-75.0); RBC 3.75 Mil/uL (3.80-5.20); RED CELL DISTRIBUTION WIDTH 14.4 % (11.5-14.5); WHITE BLOOD COUNT 10.1 K/uL (4.8-10.8)
[2018-08-21 18:47] LABS: INR 1.1; PROTHROMBIN TIME 11.7 SECONDS (9.7-12.2)
[2018-08-21 18:49] LABS: BLOOD UREA NITROGEN 52 mg/dL (7-17); CALCIUM 9.5 mg/dl (8.6-10.4); GFR NON-AFRICAN AMERICAN 31; HDL CHOLESTEROL 51 mg/dL (30-70)
[2018-08-21 19:01] LABS: ALB/GLOB RATIO 1.1 (1.0-2.1); ALBUMIN 4.3 g/dL (3.5-5.0); ALT/SGPT 23 U/L (9-52); AST/SGOT 36 U/L (14-36); LDL CHOLESTEROL < 30 mg/dL (0-129)
--- NOTE | 2018-08-22 06:33 | HP ---
DATE OF ADMISSION: 08/21/2018 at 8 p.m. CHIEF COMPLAINT: Right-sided heaviness and weakness. HISTORY OF PRESENT ILLNESS: The patient is an 83-year-old female with history of hypertension, diabetes, hypercholesterolemia, osteoarthritis, renal insufficiency, was sent from Dr. Kaur's office with recent onset of right-sided heaviness, weakness, and fecal incontinence that started Sunday, three days ago. The patient was in her usual state of health on Sunday and Sunday, but Sunday, while she woke up, she was trying to walk around. She started feeling like somewhat heaviness on the right side of the body. She felt numbness, tingling, as well as was dragging the right leg, and during that time, she was walking with her daughter outside the house and while she was returning to house, she started having increasing heaviness and increasing tiredness, and she also has a fecal incontinence x1. After she came home, she was resting in the house, and she felt okay in the beginning, but the heaviness feeling on the right side of the upper and lower extremities was persistently noted even for the next two days, but today, symptoms got much improved, and she is feeling normal on the right side. There was no associated headache, nausea. No visual symptoms or vomiting. The patient also was complaining of some chest tightness and also sometimes the pain radiating to the back, especially in the left shoulder region, but no left arm pain. The patient is left-handed. The patient denies any other major systemic symptoms, but the patient is taking multiple medications for her medical problems. The patient's family is at bedside. PAST MEDICAL HISTORY: Hypertension, diabetes, hypercholesterolemia, and history of renal insufficiency. ALLERGIES: THE PATIENT IS ALLERGIC TO ETOMIDATE. The patient has multiple consultants. CURRENT MEDICATIONS: Glipizide XL, repaglinide, Lipitor, Basaglar, hydralazine, Toprol XL, Ecotrin, Plavix, dicyclomine, Slow-Mag, Pepcid, Toviaz. SURGICAL HISTORY: Includes cholecystectomy. FAMILY HISTORY: Significant for hypertension and CVA. REVIEW OF SYSTEMS: The patient is currently feeling well. She has no chest pain. No nausea or vomiting. The patient is complaining of right-sided heaviness, but is getting better. PHYSICAL EXAMINATION: VITAL SIGNS: Stable, otherwise, except elevated blood pressure, systolic blood pressure is 190/70. HEENT: PERRLA. NECK: Supple. CHEST: Good air entry bilaterally. CARDIAC: Regular heart sounds. ABDOMEN: Nontender. EXTREMITIES: The patient has 1+ pedal edema. She has no weakness involving both lower extremities. The patient has no weakness of the right side noted. Reflexes are normal. LABORATORY DATA: The patient's labs reviewed. Labs, nonspecific. Hemoglobin A1c 7.2. Lipid profile is normal. BUN is 52, creatinine is 1.6. Hematology: WBC 10.1, hemoglobin 10.2, hematocrit 31.1, platelets 268. PT/INR is normal. CT of the head is negative. Chest x-ray, nonspecific. No evidence of any acute infiltrate. The cardiac size is normal. No mediastinal widening noted. ASSESSMENT AND PLAN: The patient is an 83-year-old female with multiple medical history of diabetes, hypertension, hypercholesterolemia. The patient also has a history of renal insufficiency, urinary incontinence. Admitted now with neurological symptoms involving the right side, mostly sensory symptoms associated with fecal incontinence one episode, underlying seizures cannot be ruled out, underlying cerebrovascular accident cannot be ruled out, but probably old at this time, subacute in nature, now having uncontrolled hypertension. Otherwise, the patient is clinically stable. We will continue to monitor neurological monitoring. We will get a neurological opinion, cardiology evaluation, carotid Doppler, echo, deep venous thrombosis and gastrointestinal prophylaxis. We will follow up the patient. Izabella Price MD
[2018-08-22 07:04] LABS: CK-MB 0.65 ng/mL (0.0-3.38); TROPONIN I 0.015 ng/mL (0.00-0.120)
--- NOTE | 2018-08-22 07:11 | CP.PCM.CON ---
History of Present Illness - History of Present Illness History of Present Illness: CONSULTATION DICTATED PATIENT IS KNOWN TO ME LONG TIME AGO BEEN TREATED FOR DIABETIC NEUROPATHY Hx RIGHT SIDED WEAKNESS EXAM ATAXIC HEMIPARESIS - RIGHT SUB CORTICAL DYSFUNCTION -? SMALL VESSEL DISEASE ASA/PLAVIX ARB/STATIN DM CONTROL OOB /PT PSG AN OP MRI/CAROTID/ECHO/EEG Past Patient History - Tetanus Immunizations Tetanus Immunization: Unknown - Past Medical History & Family History Past Medical History?: Yes - Past Social History Smoking Status: Never Smoked - CARDIAC Hx Hypercholesterolemia: Yes Hx Hypertension: Yes Hx Pacemaker: No Hx Peripheral Edema: Yes (SOMETIMES) - PULMONARY Hx Respiratory Disorders: No - NEUROLOGICAL Hx Seizures: Yes (SEIZURE LIKE AFTER ANESTHESIA) Hx Transient Ischemic Attacks (TIA): No - HEENT Hx HEENT Problems: Yes Hx Cataracts: Yes - RENAL Hx Chronic Kidney Disease: Yes (QUESTION NOTED) Hx Kidney Stones: Yes - ENDOCRINE/METABOLIC Hx Endocrine Disorders: Yes Hx Diabetes Mellitus Type 2: Yes - HEMATOLOGICAL/ONCOLOGICAL Hx Blood Disorders: No Hx Blood Transfusions: No - INTEGUMENTARY Hx Dermatological Problems: No - MUSCULOSKELETAL/RHEUMATOLOGICAL Hx Arthritis: Yes Hx Falls: No Hx Fractures: No - GASTROINTESTINAL Hx Gall Bladder Disease: Yes Hx Gastritis: Yes - GENITOURINARY/GYNECOLOGICAL Hx Genitourinary Disorders: No - PSYCHIATRIC Hx Anxiety: Yes Hx Substance Use: No - SURGICAL HISTORY Hx Appendectomy: Yes Hx Breast Biopsy: Yes Hx Cholecystectomy: Yes - ANESTHESIA Hx Anesthesia: Yes Hx Anesthesia Reactions: Yes (ETOMIDATE SEIZURE LIKE, ALTERED MENTATION) Hx Malignant Hyperthermia: No Meds Allergies/Adverse Reactions: Allergies Allergy/AdvReac Type Severity Reaction Status Date / Time etomidate Allergy ANAPHYLAXIS Verified 08/21/18 17:51 Influenza Virus Vaccines AdvReac VOMITING Verified 08/21/18 23:52 - Medications Medications: Current Medications Aspirin (Ecotrin) 81 mg PO DAILY [facility] Clopidogrel Bisulfate (Plavix) 75 mg PO DAILY [facility] Famotidine (Pepcid) 40 mg PO HS JOSÉ ANTONIO Last Admin: 08/21/18 23:09 Dose: 40 mg Hydralazine HCl (Apresoline) 50 mg PO TID [facility] Lorazepam (Ativan) 1 mg IVP ONCE ONE Stop: 08/22/18 07:08 Metoprolol Succinate (Toprol Xl) 50 mg PO DAILY [facility] Pneumococcal Polyvalent Vaccine (Pneumovax 23 Vaccine) 0.5 ml IM .ONCE ONE Stop: 08/22/18 10:01 Repaglinide (Prandin) 0.5 mg PO TID JOSÉ ANTONIO Results - Vital Signs Recent Vital Signs: Last Vital Signs Temp 97.6 F 08/22/18 04:31 Pulse 59 L 08/22/18 04:31 Resp 20 08/22/18 04:31 BP 175/67 H 08/22/18 04:31 Pulse Ox 98 08/22/18 04:31 - Labs Result Diagrams: 08/21/18 18:25 08/21/18 18:25 Labs: Laboratory Results - last 24 hr 08/21/18 08/21/18 08/21/18 18:09 18:25 18:25 WBC 10.1 RBC 3.75 L Hgb 10.2 L Hct 31.1 L MCV 83.0 D MCH 27.3 MCHC 32.8 L RDW 14.4 Plt Count 268 MPV 9.0 Neut % (Auto) 66.3 Lymph % (Auto) 22.5 [place] % (Auto) 8.9 Eos % (Auto) 1.0 Baso % (Auto) 1.3 Neut # (Auto) 6.7 Lymph # (Auto) 2.3 [place] # (Auto) 0.9 H Eos # (Auto) 0.1 Baso # (Auto) 0.1 PT 11.7 INR 1.1 APTT 25 Sodium Potassium Chloride Carbon Dioxide Anion Gap BUN Creatinine Est GFR ( Amer) Est GFR (Non-Af Amer) POC Glucose (mg/dL) 176 H Random Glucose Hemoglobin A1c Calcium Total Bilirubin AST ALT Alkaline Phosphatase Total Creatine Kinase CK-MB (Mass) Troponin I Total Protein Albumin Globulin Albumin/Globulin Ratio Triglycerides Cholesterol LDL Cholesterol Direct HDL Cholesterol Blood Type Antibody Screen 08/21/18 08/21/18 08/21/18 18:25 18:25 19:15 WBC RBC Hgb Hct MCV MCH MCHC RDW Plt Count MPV Neut % (Auto) Lymph % (Auto) [place] % (Auto) Eos % (Auto) Baso % (Auto) Neut # (Auto) Lymph # (Auto) [place] # (Auto) Eos # (Auto) Baso # (Auto) PT INR APTT Sodium 137 Potassium 4.7 Chloride 102 Carbon Dioxide 25 Anion Gap 15 BUN 52 H Creatinine 1.6 H Est GFR ( Amer) 37 Est GFR (Non-Af Amer) 31 POC Glucose (mg/dL) Random Glucose 160 H Hemoglobin A1c 7.2 H Calcium 9.5 Total Bilirubin 0.8 AST 36 D ALT 23 Alkaline Phosphatase 69 Total Creatine Kinase CK-MB (Mass) Troponin I < 0.0120 Total Protein 8.1 Albumin 4.3 Globulin 3.8 Albumin/Globulin Ratio 1.1 Triglycerides 134 Cholesterol 118 LDL Cholesterol Direct < 30 HDL Cholesterol 51 Blood Type A POSITIVE Antibody Screen Negative 08/21/18 08/22/18 08/22/18 21:38 06:17 06:19 WBC RBC Hgb Hct MCV MCH MCHC RDW Plt Count MPV Neut % (Auto) Lymph % (Auto) [place] % (Auto) Eos % (Auto) Baso % (Auto) Neut # (Auto) Lymph # (Auto) [place] # (Auto) Eos # (Auto) Baso # (Auto) PT INR APTT Sodium Potassium Chloride Carbon Dioxide Anion Gap BUN Creatinine Est GFR ( Amer) Est GFR (Non-Af Amer) POC Glucose (mg/dL) 92 60 L 58 L Random Glucose Hemoglobin A1c Calcium Total Bilirubin AST ALT Alkaline Phosphatase Total Creatine Kinase CK-MB (Mass) Troponin I Total Protein Albumin Globulin Albumin/Globulin Ratio Triglycerides Cholesterol LDL Cholesterol Direct HDL Cholesterol Blood Type Antibody Screen 08/22/18 08/22/18 06:28 06:44 WBC RBC Hgb Hct MCV MCH MCHC RDW Plt Count MPV Neut % (Auto) Lymph % (Auto) [place] % (Auto) Eos % (Auto) Baso % (Auto) Neut # (Auto) Lymph # (Auto) [place] # (Auto) Eos # (Auto) Baso # (Auto) PT INR APTT Sodium Potassium Chloride Carbon Dioxide Anion Gap BUN Creatinine Est GFR ( Amer) Est GFR (Non-Af Amer) POC Glucose (mg/dL) 132 H Random Glucose Hemoglobin A1c Calcium Total Bilirubin AST ALT Alkaline Phosphatase Total Creatine Kinase 49 CK-MB (Mass) 0.65 Troponin I 0.0150 Total Protein Albumin Globulin Albumin/Globulin Ratio Triglycerides Cholesterol LDL Cholesterol Direct HDL Cholesterol Blood Type Antibody Screen
[2018-08-22 07:23] LABS: FREE T4 1.2 ng/dL (0.78-2.19)
--- NOTE | 2018-08-22 07:40 | CP.PCM.PN ---
Subjective - Date & Time of Evaluation Date of Evaluation: 08/22/18 Time of Evaluation: 07:39 - Subjective Subjective: The patient today seen by neurologist. As per neurologist at there is any evidence that right-sided minimal weakness present. Suspecting small vessel disease. Suggested MRI. Patient is currently reluctant to have MRI because of the claustrophobia. On examination: Patient is comfortable not in any distress. Slight elevation of the blood pressure noted. Chest good air entry regular heart sound. Labs reviewed in Assessment: Patient is 83-year-old female with multiple medical problems including diabetes hypertension and hypercholesteremia admitted with right-sided heaviness. Patient will be closely monitored. If there is no MRI, patient can be discharged as per neurology with the dual antiplatelets. Medical management. Outpatient treatment. Meanwhile will get carotid, echo and EEG before discharge. Objective - Vital Signs/Intake and Output Vital Signs (last 24 hours): Temp Pulse Resp BP Pulse Ox 97.6 F 59 L 20 175/67 H 98 08/22/18 04:31 08/22/18 04:31 08/22/18 04:31 08/22/18 04:31 08/22/18 04:31 - Medications Medications: Current Medications Aspirin (Ecotrin) 81 mg PO DAILY [facility] Clopidogrel Bisulfate (Plavix) 75 mg PO DAILY [facility] Famotidine (Pepcid) 40 mg PO HS [facility] Last Admin: 08/21/18 23:09 Dose: 40 mg Hydralazine HCl (Apresoline) 50 mg PO TID [facility] Metoprolol Succinate (Toprol Xl) 50 mg PO DAILY [facility] Pneumococcal Polyvalent Vaccine (Pneumovax 23 Vaccine) 0.5 ml IM .ONCE ONE Stop: 08/22/18 10:01 Repaglinide (Prandin) 0.5 mg PO TID [facility] - Labs Labs: 08/21/18 18:25 08/21/18 18:25 PT 11.7 SECONDS (9.7-12.2) 08/21/18 18:25 INR 1.1 08/21/18 18:25 APTT 25 SECONDS (21-34) 08/21/18 18:25
[2018-08-22 07:58] LABS: FOLATE 12.7 ng/mL
--- NOTE | 2018-08-22 09:13 | CT ---
Date of service: 08/21/2018 PROCEDURE: CT HEAD WITHOUT CONTRAST. HISTORY: Right SIDED WEAKNESS COMPARISON: None available. TECHNIQUE: Axial computed tomography images were obtained through the head/brain without intravenous contrast. Radiation dose: Total exam DLP = 953.57 mGy-cm. This CT exam was performed using one or more of the following dose reduction techniques: Automated exposure control, adjustment of the mA and/or kV according to patient size, and/or use of iterative reconstruction technique. FINDINGS: HEMORRHAGE: No intracranial hemorrhage. BRAIN: No mass effect or edema. Scattered focal lucencies in the subcortical and periventricular white matter suggestive for chronic microvascular ischemic change. Left basal ganglia lacunar infarct. VENTRICLES: Prominent. CALVARIUM: Unremarkable. PARANASAL SINUSES: Mild mucosal thickening of the ethmoid air cells. MASTOID AIR CELLS: Unremarkable as visualized. No inflammatory changes. OTHER FINDINGS: Intracranial arterial calcifications. IMPRESSION: No acute intracranial abnormality. Chronic microvascular ischemic changes. Left basal ganglia lacunar infarct. Mild sinus mucosal disease. If symptoms persists, consider correlation with MRI. A preliminary report was generated at 7:34 p.m. on 08/21/[address] Diallo Begum from [employer].
[2018-08-22] MEDS ORDERED: Metoprolol Succinate 50 mg XL Tab PO SCH (10:00)
[2018-08-22] MEDS ORDERED: Pneumococcal 23-Valent Vaccine IM ONE (10:00)
--- NOTE | 2018-08-22 10:09 | RAD ---
Date of service: 08/21/2018 HISTORY: Code Stroke COMPARISON: No prior. FINDINGS: LUNGS: Mild venous congestion. Right hilar prominence. Nodular density at the left lung base likely represents confluence shadows with ribs and vessels. PLEURA: No significant pleural effusion identified, no pneumothorax apparent. CARDIOVASCULAR: Aortic atherosclerotic calcification present. Tortuous ectatic aorta. Normal cardiac size. OSSEOUS STRUCTURES: No significant abnormalities. VISUALIZED UPPER ABDOMEN: Surgical clips in the upper abdomen. OTHER FINDINGS: None. IMPRESSION: Mild venous congestion. Right hilar prominence. Nodular density at the left lung base likely represents confluence shadows with ribs and vessels.
--- NOTE | 2018-08-22 12:10 | CARD ---
APPROVED REPORT Date of service: 08/21/2018 EKG Measurement Heart [id number] <Conclusion> Sinus bradycardia Otherwise normal ECG
--- NOTE | 2018-08-22 12:51 | VASCLAB ---
Date of service: 08/22/2018 PROCEDURE: Carotid Duplex Exam. HISTORY: TIA COMPARISON: None available. TECHNIQUE: Grayscale and duplex Doppler evaluation of the cervical carotid and vertebral arteries were performed. The common carotid, carotid bifurcations and cervical Internal Carotid Artery (ICA) and proximal External Carotid Artery (ECA) were evaluated. The vertebral arteries were evaluated for gross patency and flow direction. Report prepared by DAVE Faria FINDINGS: RIGHT CAROTID ARTERIES: 1. Common Carotid Artery: No significant focal plaque formation of the right common carotid artery. Maximum Peak Systolic velocity: 53 cm/sec: End-diastolic velocity 8 cm/sec. 2. Carotid Bifurcation: plaque formation. Maximum Peak Systolic velocity: 95 cm/sec: End-diastolic velocity 27 cm/sec. 3. Internal Carotid Artery: Plaque description: 3.1. Proximal Segment: Peak systolic velocity 97 cm/sec: End-diastolic velocity 21 cm/sec - % stenosis 0-15% 3.2. Middle Segment: Peak systolic velocity 59 cm/sec: End-diastolic velocity 10 cm/sec - % stenosis 0-15% 3.3. Distal Segment: Peak systolic velocity 41 cm/sec: End-diastolic velocity 11 cm/sec - % stenosis 0-15% 4. External Carotid Artery: No significant focal plaque formation. Peak systolic velocity 58 cm/sec 5. ICA/CCA Ratio: 1.8 LEFT CAROTID ARTERIES: 1. Common Carotid Artery: No significant focal plaque formation of the left common carotid artery. Maximum Peak Systolic velocity: 58 cm/sec: End-diastolic velocity 6 cm/sec. 2. Carotid Bifurcation: plaque formation. Maximum Peak Systolic velocity: 42 cm/sec: End-diastolic velocity 6 cm/sec. 3. Internal Carotid Artery: Plaque description: 3.1. Proximal Segment: Peak systolic velocity 91 cm/sec: End-diastolic velocity 21 cm/sec - % stenosis 0-15% 3.2. Middle Segment: Peak systolic velocity 85 cm/sec: End-diastolic velocity 24 cm/sec - % stenosis 0-15% 3.3. Distal Segment: Peak systolic velocity 43 cm/sec: End-diastolic velocity 10 cm/sec - % stenosis 0-15% 4. External Carotid Artery: No significant focal plaque formation. Peak systolic velocity 62 cm/sec 5. ICA/CCA Ratio: 1.6 VERTEBRAL ARTERIES: 1. Right Vertebral Artery: The right vertebral artery flow direction is antegrade. 2. Left Vertebral Artery: The left vertebral artery flow direction is antegrade. OTHER FINDINGS: 1. Right Brachial Blood pressure: 170 mmHg. 2. Left Brachial Blood pressure: 180 mmHg. 3. No atherosclerotic calcification present IMPRESSION: RIGHT: Duplex scan does not suggest hemodynamically significant stenosis of the right extracranial carotid arteries. LEFT: Duplex scan does not suggest hemodynamically significant stenosis of the left extracranial carotid arteries.
--- NOTE | 2018-08-22 14:50 | CARD ---
APPROVED REPORT Date of service: 08/22/2018 EXAM: Two-dimensional and M-mode echocardiogram with Doppler and color Doppler. Other Information Quality : ExcellentGoodRhythm : INDICATION CVA/TIA Dizziness and Vertigo Chest Pain Edema RISK FACTORS Hypertension Hyperlipidemia 2D DIMENSIONS IVSd0.9 (0.7-1.1cm)LVDd4.0 (3.9-5.9cm) PWd0.8 (0.7-1.1cm)LA Payfqb15 (18-58mL) LVDs2.9 (2.5-4.0cm)FS (%) 28.3 % LVEF (%)65.0 (>50%)LVEF (Tate's)67.79 % M-Mode DIMENSIONS Left Atrium (MM)4.38 (2.5-4.0cm)IVSd0.91 (0.7-1.1cm) Aortic Root3.17 (2.2-3.7cm)LVDd5.31 (4.0-5.6cm) Aortic Cusp Exc.1.87 (1.5-2.0cm)PWd0.95 (0.7-1.1cm) FS (%) 46 %LVDs2.88 (2.0-3.8cm) LVEF (%)77 (>50%) Mitral Valve MV E Hkqumxsx193.1cm/sMV A Awxdhwcg88.3cm/sE/A ratio1.8 TDI Lateral E' Peak V7.90cm/sMedial E' Peak V6.09cm/sE/Lateral E'13.1 E/Medial E'16.9 Tricuspid Valve TR Peak Mbgvuibr515qo/sTR Peak Gr.39soCmPNRM23vzBp LEFT VENTRICLE The left ventricle is normal size. There is normal left ventricular wall thickness. The Ejection Fraction is 65-70%. There is normal LV segmental wall motion. The left ventricular diastolic function is normal. RIGHT VENTRICLE The right ventricle is normal size. The right ventricular systolic function is normal. ATRIA The left atrium is mildly dilated. The right atrium size is normal. The interatrial septum is intact with no evidence for an atrial septal defect. AORTIC VALVE The aortic valve is mildly sclerotic. The aortic valve is trileaflet. No aortic regurgitation is present. MITRAL VALVE The mitral valve is normal in structure. Mitral regurgitation is mild to moderate. TRICUSPID VALVE The tricuspid valve is normal in structure. There is mild tricuspid regurgitation. Right ventricular systolic pressure is estimated at 38 mmHg. There is mild pulmonary hypertension. PULMONIC VALVE The pulmonary valve is normal in structure. There is trace pulmonic valvular regurgitation. GREAT VESSELS The aortic root is normal size. The aortic root displays mild sclerocalcific changes of the aortic root. ivc is mildly dilated. PERICARDIAL EFFUSION There is no pericardial effusion. <Conclusion> The left ventricle is normal size. The Ejection Fraction is 65-70%. The left ventricular diastolic function is normal. The left atrium is mildly dilated. Mitral regurgitation is mild to moderate. There is mild tricuspid regurgitation. Right ventricular systolic pressure is estimated at 38 mmHg. There is mild pulmonary hypertension. The aortic root is normal size. The aortic root displays mild sclerocalcific changes of the aortic root. ivc is mildly dilated. There is no pericardial effusion.
--- NOTE | 2018-08-22 16:03 | CON ---
DATE: 08/22/2018 ATTENDING PHYSICIAN: Izabella Price MD LOCATION: The patient is in room number 63, bed B. REASON FOR CONSULTATION: Right-sided weakness. CHIEF COMPLAINT: The patient was advised to come to the [facility] where she was seeing a recreation counselor due to her history of weakness on her right side. From neurological point of view, I was called in to evaluate her for further management. HISTORY OF PRESENT ILLNESS: Ms. Lizbeth Vogel is an 83-year-old right-handed female who is known to me for many years in the past. Stopped seeing me for a few years, being treated for her diabetic neuropathy in the past, presenting with episode of right-sided weakness associated with tingling and heaviness of her right leg when she was walking three days ago. This was witnessed by her daughter as per the history. She also had episode of fecal incontinence once after she came home. Her symptoms resolved in two days. While she was visiting her recreation counselor for her followup as a scheduled visit, she was told to come to the hospital for further evaluation of her new neurological symptoms. PAST MEDICAL HISTORY: Dyslipidemia, diabetes mellitus, hypertension and history of renal insufficiency. PERSONAL HISTORY: Denies smoking or alcohol use. MEDICATIONS: At home glipizide, repaglinide, Lipitor, hydralazine, Toprol, aspirin, Plavix, dicyclomine, Slow-Mag, Pepcid. REVIEW OF SYSTEMS: 12-point system being reviewed. From neuro, new right-sided weakness. PHYSICAL EXAMINATION: VITAL SIGNS: Blood pressure 175/67, mean artery pressure of 103, respiratory rate 18, pulse rate of 59 regular, temperature 97.6. NECK: Supple. No carotid bruits. HEART: Sounds regular. Chest fair air entry. EXTREMITIES: No edema in legs. NEUROLOGIC EXAMINATION: Mental status examination, she is awake, alert and oriented to person, place and time. Communicable only in Bulgarian. She knows why she is here. No sign of hallucination. No sign of suicidal ideation. No sign of depression. CRANIAL NERVE EXAMINATION: Visual field intact. Pupils reactive to light. Extraocular movement normal. No nystagmus. No facial sensory deficit. No facial asymmetry. Hearing is normal. Tongue is midline. Good gag. Motor examination, outstretched hand with eyes closed, no drift noted. Power is symmetric on either side. Deep tendon reflexes biceps, brachialis, triceps absent in upper extremities, both knees are absent, both ankles are absent. Plantars are upgoing on her right side. Left side was downgoing. COORDINATION: Jaaoaj-ee-bhmu dysmetria noted on the right side. There is mild dysmetria on her right side to compare with the left side. 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 CONCLUSION: Ms. Lizbeth Vogel presenting with new episode of right ataxic hemiparesis which has been resolved as per her. On examination shows hemiparesis on the right side with appendicular dysmetria consistent with left subcortical dysfunction. It could be from brainstem versus internal capsule. Considering her risk factors including dyslipidemia, hypertension, and diabetes mellitus, it is probably a small vessel disease. However, large vessel disease should be ruled out. WORKUP: CT of the head reviewed, no acute pathology is noted. Mild atrophy. EKG normal sinus rhythm. Blood workup, WBC 10.1, hemoglobin 10.2, hematocrit 31.1, platelet 268. PT 11.1, INR 1.1, PTT is 25. Sodium 137, potassium 4.7, chloride 102, bicarbonate 25, BUN 52, creatinine 1.6, GFR 37, glucose 132. Hemoglobin A1c 7.2, triglyceride 134, cholesterol 118, LDL less than 30, HDL 51. RECOMMENDATION: 1. Agree with aspirin with Plavix. 2. The patient should be on angiotensin receptor tavon with a low-dose of statin for stroke prophylaxis. 3. Diabetic control. 4. MRI of the brain to rule out any structural cause to explain her right-sided weakness. 5. Echocardiogram to rule out any cardioembolic phenomenon. 6. Carotid Doppler to assess the stenosis of the carotid artery. 7. Electroencephalogram to rule out any paroxysmal activities consistent with focal seizure. 8. The patient should have out of bed physical therapy, DVT prophylaxis. 9. 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 The patient should have a polysomnogram that can be done as outpatient. While she is in the hospital, the patient will be followed closely with you. Michel Lujan MD [facility] # [id number] RHONDA
[2018-08-22 16:26] VITALS: RESP 20; O2SAT 98
--- NOTE | 2018-08-22 21:47 | CP.PCM.CON ---
History of Present Illness - History of Present Illness History of Present Illness: CC: right sided numbness 83 year old female was sent to the ED by PMD for evaluation of right-sided numbness. Per family member the patient experienced sudden onset numbness and heaviness to the right arm and leg associated with dizziness after walking a few blocks 3 days ago which has since resolved. The family member also notes the patient has intermittent left-sided chest pain which has also resolved. Denies headache, fever, nausea, vomiting, and any other associated symptoms. History Per: Family (member.) History/Exam Limitations: no limitations Onset/Duration Of Symptoms: Days Current Symptoms Are (Timing): Gone Chief Complaint (Nursing): Weakness/Neurological Deficit Past Medical History Reviewed: Historical Data, Nursing Documentation, Vital Signs - Medical History PMH: Anxiety, Arthritis, Colonic Polyps (VERY LARGE POLYP), Gastritis, Gall Bladder Disease, HTN, Hypercholesterolemia, Kidney Stones, Peripheral Edema (SOMETIMES), Chronic Kidney Disease (QUESTION NOTED), Seizures (SEIZURE LIKE AF TER ANESTHESIA) Denies: Fractures, TIA Surgical History: Appendectomy, Cholecystectomy, Endoscopy Denies: Pacemaker Family History: States: Unknown Family Hx - Social History Hx Alcohol Use: No Hx Substance Use: No Review Of Systems Except As Marked, All Systems Reviewed And Found Negative. Constitutional: Negative for: Fever Cardiovascular: Positive for: Chest Pain (over the left side.) Gastrointestinal: Negative for: Nausea, Vomiting Neurological: Positive for: Numbness (to the right arm and leg. ), Dizziness. Negative for: Headache Physical Exam - Physical Exam Appears: Well, Non-toxic, No Acute Distress Skin: Normal Color, Warm, Dry Head: Atraumatic, Normacephalic Eye(s): bilateral: Normal Inspection Oral Mucosa: Moist Neck: Normal ROM, Supple Chest: Symmetrical, No Deformity Cardiovascular: Rhythm Regular, No Murmur Respiratory: Normal Breath Sounds, No Rales, No Rhonchi, No Wheezing Gastrointestinal/Abdominal: Normal Exam, Soft, No Tenderness Extremity: Normal ROM (x4 ), No Pedal Edema, No Calf Tenderness, Capillary Refill (less than 2 seconds.), No Deformity, No Swelling Neurological/Psych: Oriented x3, Normal Speech, Normal Motor, Normal Sensation, Normal Reflexes Past Patient History - Tetanus Immunizations Tetanus Immunization: Unknown - Past Medical History & Family History Past Medical History?: Yes - Past Social History Smoking Status: Never Smoked - CARDIAC Hx Hypercholesterolemia: Yes Hx Hypertension: Yes - PULMONARY Hx Respiratory Disorders: No - NEUROLOGICAL Hx Seizures: Yes (SEIZURE LIKE AFTER ANESTHESIA) Hx Transient Ischemic Attacks (TIA): No - HEENT Hx HEENT Problems: Yes Hx Cataracts: Yes - RENAL Hx Chronic Kidney Disease: Yes (QUESTION NOTED) Hx Kidney Stones: Yes - ENDOCRINE/METABOLIC Hx Endocrine Disorders: Yes Hx Diabetes Mellitus Type 2: Yes - HEMATOLOGICAL/ONCOLOGICAL Hx Blood Disorders: No Hx Blood Transfusions: No - INTEGUMENTARY Hx Dermatological Problems: No - MUSCULOSKELETAL/RHEUMATOLOGICAL Hx Arthritis: Yes Hx Falls: No Hx Fractures: No - GASTROINTESTINAL Hx Gall Bladder Disease: Yes Hx Gastritis: Yes - GENITOURINARY/GYNECOLOGICAL Hx Genitourinary Disorders: No - PSYCHIATRIC Hx Anxiety: Yes Hx Substance Use: No - SURGICAL HISTORY Hx Appendectomy: Yes Hx Breast Biopsy: Yes Hx Cholecystectomy: Yes - ANESTHESIA Hx Anesthesia: Yes Hx Anesthesia Reactions: Yes (ETOMIDATE SEIZURE LIKE, ALTERED MENTATION) Hx Malignant Hyperthermia: No Meds Allergies/Adverse Reactions: Allergies Allergy/AdvReac Type Severity Reaction Status Date / Time etomidate Allergy ANAPHYLAXIS Verified 08/21/18 17:51 Influenza Virus Vaccines AdvReac VOMITING Verified 08/21/18 23:52 - Medications Medications: Current Medications Amlodipine Besylate (Norvasc) 2.5 mg PO DAILY [facility] Last Admin: 08/22/18 19:23 Dose: 2.5 mg Aspirin (Ecotrin) 81 mg PO DAILY [facility] Last Admin: 08/22/18 10:29 Dose: 81 mg Clopidogrel Bisulfate (Plavix) 75 mg PO DAILY [facility] Last Admin: 08/22/18 10:30 Dose: 75 mg Famotidine (Pepcid) 20 mg PO [facility] Hydralazine HCl (Apresoline) 50 mg PO TID [facility] Last Admin: 08/22/18 17:42 Dose: 50 mg Repaglinide (Prandin) 0.5 mg PO TID [facility] Last Admin: 08/22/18 17:42 Dose: 0.5 mg Results - Vital Signs Recent Vital Signs: Last Vital Signs Temp 97.9 F 08/22/18 07:02 Pulse 51 L 08/22/18 16:37 Resp 20 08/22/18 16:25 BP 195/63 H 08/22/18 16:25 Pulse Ox 98 08/22/18 16:25 - Labs Result Diagrams: 08/21/18 18:25 08/21/18 18:25 Labs: Laboratory Results - last 24 hr 08/21/18 08/22/18 08/22/18 21:38 06:17 06:19 ESR POC Glucose (mg/dL) 92 60 L 58 L Total Creatine Kinase CK-MB (Mass) Troponin I Vitamin B12 Folate Homocysteine Free T4 TSH 3rd Generation 08/22/18 08/22/18 08/22/18 06:28 06:28 06:28 ESR 43 H POC Glucose (mg/dL) Total Creatine Kinase 49 CK-MB (Mass) 0.65 Troponin I 0.0150 Vitamin B12 512 Folate 12.7 Homocysteine 15.6 H Free T4 1.20 TSH 3rd Generation 3.29 08/22/18 08/22/18 08/22/18 06:44 12:25 17:02 ESR POC Glucose (mg/dL) 132 H 184 H 263 H Total Creatine Kinase CK-MB (Mass) Troponin I Vitamin B12 Folate Homocysteine Free T4 TSH 3rd Generation Assessment & Plan - Assessment and Plan (Free Text) Assessment: Patient is 83-year-old female with multiple medical problems including diabetes hypertension and hypercholesteremia admitted with right-sided heaviness. CVA-Neuro eval in progress Bradycardia Off Lopressor Will follow
[2018-08-23 08:17] VITALS: BP 152/75; TEMP 98.2
--- NOTE | 2018-08-23 09:04 | CP.PCM.DIS ---
Provider - Provider Date of Admission: 08/21/18 19:34 Attending physician: Izabella Price MD Time Spent in preparation of Discharge (in minutes): 45 Hospital Course - Lab Results Lab Results: Most Recent Lab Values WBC 10.1 K/uL (4.8-10.8) 08/21/18 18:25 RBC 3.75 Mil/uL (3.80-5.20) L 08/21/18 18:25 Hgb 10.2 g/dL (11.0-16.0) L 08/21/18 18:25 Hct 31.1 % (34.0-47.0) L 08/21/18 18:25 MCV 83.0 fL (81.0-99.0) D 08/21/18 18:25 MCH 27.3 pg (27.0-31.0) 08/21/18 18:25 MCHC 32.8 g/dL (33.0-37.0) L 08/21/18 18:25 RDW 14.4 % (11.5-14.5) 08/21/18 18: Plt Count 268 K/uL (130-400) 08/21/18 18:25 MPV 9.0 fL (7.2-11.7) 08/21/18 18:25 Neut % (Auto) 66.3 % (50.0-75.0) 08/21/18 18:25 Lymph % (Auto) 22.5 % (20.0-40.0) 08/21/18 18:25 [place] % (Auto) 8.9 % (0.0-10.0) 08/21/18 18:25 Eos % (Auto) 1.0 % (0.0-4.0) 08/21/18 18:25 Baso % (Auto) 1.3 % (0.0-2.0) 08/21/18 18:25 Neut # (Auto) 6.7 K/uL (1.8-7.0) 08/21/18 18:25 Lymph # (Auto) 2.3 K/uL (1.0-4.3) 08/21/18 18:25 [place] # (Auto) 0.9 K/uL (0.0-0.8) H 08/21/18 18:25 Eos # (Auto) 0.1 K/uL (0.0-0.7) 08/21/18 18:25 Baso # (Auto) 0.1 K/uL (0.0-0.2) 08/21/18 18:25 ESR 43 mm/hr (0-20) H 08/22/18 06:28 PT 11.7 SECONDS (9.7-12.2) 08/21/18 18:25 INR 1.1 08/21/18 18:25 APTT 25 SECONDS (21-34) 08/21/18 18:25 Sodium 137 mmol/L (132-148) 08/21/18 18:25 Potassium 4.7 mmol/L (3.6-5.2) 08/21/18 18:25 Chloride 102 mmol/L (98-107) 08/21/18 18:25 Carbon Dioxide 25 mmol/L (22-30) 08/21/18 18:25 Anion Gap 15 (10-20) 08/21/18 18:25 BUN 52 mg/dL (7-17) H 08/21/18 18:25 Creatinine 1.6 mg/dL (0.7-1.2) H 08/21/18 18:25 Est GFR ( Amer) 37 08/21/18 18:25 Est GFR (Non-Af Amer) 31 08/21/18 18:25 POC Glucose (mg/dL) 110 mg/dL (65-110) 08/23/18 06:29 Random Glucose 160 mg/dL (65-105) H 08/21/18 18:25 Hemoglobin A1c 7.2 % (4.2-6.5) H 08/21/18 18:25 Calcium 9.5 mg/dl (8.6-10.4) 08/21/18 18:25 Total Bilirubin 0.8 mg/dL (0.2-1.3) 08/21/18 18:25 AST 36 U/L (14-36) D 08/21/18 18:25 ALT 23 U/L (9-52) 08/21/18 18:25 Alkaline Phosphatase 69 U/L (38-126) 08/21/18 18:25 Total Creatine Kinase 49 U/L (30-135) 08/22/18 06:28 CK-MB (Mass) 0.65 ng/mL (0.0-3.38) 08/22/18 06:28 Troponin I 0.0150 ng/mL (0.00-0.120) 08/22/18 06:28 Total Protein 8.1 g/dL (6.3-8.3) 08/21/18 18:25 Albumin 4.3 g/dL (3.5-5.0) 08/21/18 18:25 Globulin 3.8 gm/dL (2.2-3.9) 08/21/18 18:25 Albumin/Globulin Ratio 1.1 (1.0-2.1) 08/21/18 18:25 Triglycerides 134 mg/dL (0-149) 08/21/18 18:25 Cholesterol 118 mg/dL (0-199) 08/21/18 18:25 LDL Cholesterol Direct < 30 mg/dL (0-129) 08/21/18 18:25 HDL Cholesterol 51 mg/dL (30-70) 08/21/18 18:25 Vitamin B12 512 pg/mL (239-931) 08/22/18 06:28 Folate 12.7 ng/mL 08/22/18 06:28 Homocysteine 15.6 umol/L (4.7-12.6) H 08/22/18 06:28 Free T4 1.20 ng/dL (0.78-2.19) 08/22/18 06:28 TSH 3rd Generation 3.29 mIU/L (0.46-4.68) 08/22/18 06:28 Blood Type A POSITIVE 08/21/18 19:15 Antibody Screen Negative 08/21/18 19:15 - Hospital Course Hospital Course: Patient is 83-year-old female admitted with a history of hypertension, diabetes, hypercholesteremia osteoarthritis, kidney failure chronic. Patient went to see information engineer in his office, at the time she was comparing of right-sided weakness, fecal incontinence, and heaviness. Patient was sent to the emergency room for suspected CVA. Initially patient was evaluated in the emergency room, and CAT scan was done, no evidence of any acute changes noted. Patient admitted to the hospital for close observation and monitoring. Neurological evaluation was called in. Cardiology volition was called. Patient was closely monitored for neurological point of view. Patient underwent workup including carotid Doppler, CAT scan of the head. Negative. Echocardiogram also normal ejection fraction noted. Patient is clinically stable. She will be discharged home. She will continue had a home medications. Spoke to the patient's family. She will follow-up with the neurologist, and information engineer as an outpatient. Final diagnoses: Likely possible transient ischemic attack. Hypertension. Atherosclerotic heart disease. Diabetes. Stable clinically, medications will be continued from home. Patient will follow-up with the her PMD Discharge Plan - Discharge Medications Prescriptions: amLODIPine [Norvasc] 5 mg PO DAILY #30 tab Famotidine [Pepcid] 20 mg PO HS #30 tab - Follow Up Plan Condition: FAIR Disposition: HOME/ ROUTINE Instructions: Heart Healthy Diet, Diabetes Exchange Diet, Stroke (DC), Transient Ischemic Attack (DC), Diabetes Diet , Chest Pain (DC), Amlodipine, Famotidine Additional Instructions: Please follow up with Dr. Price office in 1 week Please follow up with Dr. Lujan office in 1 week ( follow up and clearance to travel [facility]) Please follow up with Dr. Kaur office in 2- 4 weeks Stop taking metoprolol PLEASE SOFTWARE TECHNICIAN MEDICATION FROM PHARMACY- [facility] Referrals: Enmanuel Kaur MD [Staff Provider] - Michel Lujan MD [Staff Provider] - Izabella Price MD [Staff Provider] -
[2018-08-23 12:39] VITALS: PULSE 73
== END 2018-08-23 14:05 | disposition home or self-care (01) | DRG 57 ==
LOC: C.ER 17:46 → C.6T 19:34
PROVIDERS: ADMIT Internal Medicine; ATTEND Internal Medicine
DX: G81.91 Hemiplegia, unspecified affecting right dominant side (principal); E78.00 Pure hypercholesterolemia, unspecified; R27.0 Ataxia, unspecified; F40.240 Claustrophobia; R00.1 Bradycardia, unspecified; I10 Essential (primary) hypertension; E11.9 Type 2 diabetes mellitus without complications; R15.9 Full incontinence of feces; Z86.73 Personal history of transient ischemic attack (TIA), and cerebral infarction without residual deficits; Z86.010 Personal history of colon polyps

== ENCOUNTER 2018-11-11 08:42 | Outpatient (CLI) | payer MEDICARE | END 2018-11-11 08:43 | disposition home or self-care (01) | LOC: C.RADIC 08:42 | DX: M54.5 Low back pain (principal); M25.561 Pain in right knee ==

== ENCOUNTER 2018-12-06 09:20 | Emergency (ER) | payer MEDICARE ==
[2018-12-06 09:24] VITALS: BMI 24.7
[2018-12-06] MEDS ORDERED: Albuterol 0.083% Inhal Sol (2.5 mg/3 mL) UD INH STA (09:59)
[2018-12-06] MEDS ORDERED: Albuterol 0.083% Inhal Sol (2.5 mg/3 mL) UD ONE (10:26)
--- NOTE | 2018-12-06 10:26 | C.PDOC ---
History Of Present Illness 83yo female with history of hypertension, high cholesterol, comes to ER reporting non-productive cough, chest tightness, bodyaches for the past 5 days. She denies any associated fever, chills, or sore throat. No additional medical complaints PMD: Kehinde Jaramillo Time Seen by Provider: 12/06/18 09:32 Chief Complaint (Nursing): Cough, Cold, Congestion History Per: Patient History/Exam Limitations: no limitations Onset/Duration Of Symptoms: Days Current Symptoms Are (Timing): Still Present Associated Symptoms: Cough. denies: Sore Throat, Sputum Additional History Per: Patient Past Medical History Reviewed: Historical Data, Nursing Documentation, Vital Signs Vital Signs: Last Vital Signs Temp 99.5 F 12/06/18 09:24 Pulse 89 12/06/18 09:24 Resp 18 12/06/18 09:24 BP 174/77 H 12/06/18 09:24 Pulse Ox 99 12/06/18 09:24 - Medical History PMH: Anxiety, Arthritis, Colonic Polyps (VERY LARGE POLYP), Gastritis, Gall Bladder Disease, HTN, Hypercholesterolemia, Kidney Stones, Peripheral Edema (SOMETIMES), Chronic Kidney Disease, Seizures (SEIZURE LIKE AFTER ANESTHESIA) Denies: Fractures, TIA Surgical History: Appendectomy, Cholecystectomy, Endoscopy Denies: Pacemaker Family History: States: Unknown Family Hx - Social History Hx Alcohol Use: No Hx Substance Use: No - Immunization History Hx Tetanus Toxoid Vaccination: No Hx Influenza Vaccination: No Hx Pneumococcal Vaccination: No Review Of Systems Except As Marked, All Systems Reviewed And Found Negative. Constitutional: Negative for: Fever, Chills ENT: Negative for: Throat Pain Cardiovascular: Positive for: Other (chest tightness) Respiratory: Positive for: Cough. Negative for: Shortness of Breath, Hemoptysis, Sputum Gastrointestinal: Negative for: Vomiting Physical Exam - Physical Exam Appears: Non-toxic, No Acute Distress Skin: Normal Color Head: Atraumatic, Normacephalic Eye(s): bilateral: Normal Inspection Neck: Normal ROM, Supple Chest: Symmetrical Cardiovascular: Rhythm Regular Respiratory: Decreased Breath Sounds, No Rales, No Rhonchi, No Wheezing Gastrointestinal/Abdominal: Normal Exam, Soft Back: Normal Inspection Extremity: Normal ROM, No Pedal Edema Neurological/Psych: Oriented x3 ED Course And Treatment - Laboratory Results Result Diagrams: 12/06/18 10:21 12/06/18 10:21 ECG: Interpreted By Me, Viewed By Me ECG Rhythm: Sinus Rhythm Interpretation Of ECG: normal intervals, normal axis, nonspecific st/t wave changes Rate From EC O2 Sat by Pulse Oximetry: 99 (RA) Pulse Ox Interpretation: Normal - Other Rad CXR X-Ray: Read By Radiologist Interpretation: FINDINGS: LINES AND TUBES: None. LUNG AND PLEURA: The lungs are well inflated and clear. No pleural effusion or pneumothorax. HEART AND MEDIASTINUM: The heart is not enlarged. No aortic atherosclerotic calcifications present. The hilar and mediastinal contours are within normal limits. SKELETAL STRUCTURES: The bony structures are within normal limits for the patient's age. VISUALIZED UPPER ABDOMEN: Normal. OTHER FINDINGS: There are multiple surgical clips in the epigastrium and right upper quadrant. IMPRE SSION: No active pulmonary disease. Medical Decision Making Medical Decision Makinyo female with non-productive cough, r/o bronchitis Plan: -- Labs -- Urinalysis -- CXR -- Rapid flu -- Albuterol 2.5mg INH -- Toradol 15mg IV -- Rapid flu 1153 Rapid flu negative 1207 On reassessment, patient reports feeling much better; states she does not have chest tightness. Patient is stable for discharge home, instructed to follow up with PMD in 2-3 days. Disposition - Disposition Referrals: Kehinde Jaramillo MD [Staff Provider] - Disposition: HOME/ ROUTINE Disposition Time: 12:07 Condition: STABLE Additional Instructions: follow up with your doctor within 2 days call to make an appointment take medications as prescribed return to ER if symptoms worsens or progress Prescriptions: Albuterol HFA [Ventolin HFA 90 mcg/actuation (8 g)] 2 puff IH [id number] #1 puff Azithromycin [Zithromax] 250 mg PO DAILY #4 tab Oseltamivir Phosphate [Tamiflu] 75 mg PO BID #10 capsule Instructions: Acute Bronchitis, Adult (DC), Influenza (ED) Forms: [facility] (Telugu), General Discharge Instructions - Clinical Impression Clinical Impression: Influenza-like illness, Bronchitis - Scribe Statement The provider has reviewed the documentation as recorded by the Micah Chambers Provider Attestation: All medical record entries made by the Micah were at my direction and personally dictated by me. I have reviewed the chart and agree that the record accurately reflects my personal performance of the history, physical exam, medical decision making, and the department course for this patient. I have also personally directed, reviewed, and agree with the discharge instructions and disposition.
[2018-12-06 10:33] LABS: BASO # 0.1 K/uL (0.0-0.2); BASO % 0.9 % (0.0-2.0); EOS # 0.3 K/uL (0.0-0.7); EOS % 3.3 % (0.0-4.0); LYMPH % 12.7 % (20.0-40.0); MEAN CORPUSCULAR HEMOGLOBIN 25.9 pg (27.0-31.0); MEAN PLATELET VOLUME 8.6 fL (7.2-11.7); MONO # 1.2 K/uL (0.0-0.8); MONO % 15.6 % (0.0-10.0); NEUT # 5.2 K/uL (1.8-7.0); NEUT % 67.5 % (50.0-75.0); RBC 3.46 Mil/uL (3.80-5.20); RED CELL DISTRIBUTION WIDTH 15.4 % (11.5-14.5); WHITE BLOOD COUNT 7.7 K/uL (4.8-10.8)
[2018-12-06 10:34] LABS: MEAN CELL VOLUME 80.8 fL (81.0-99.0)
[2018-12-06 10:47] LABS: SQUAMOUS EPITHIAL 1 /hpf (0-5); URINE BILIRUBIN NEGATIVE (NEGATIVE); URINE BLOOD NEGATIVE (NEGATIVE); URINE CLARITY Clear (Clear); URINE COLOR Yellow (YELLOW); URINE GLUCOSE (UA) NORMAL (Normal); URINE LEUKOCYTE ESTERASE TRACE Leu/uL (Negative); URINE PROTEIN 1+ mg/dL (NEGATIVE); URINE UROBILINOGEN NORMAL mg/dL (0.2-1.0)
[2018-12-06 10:49] LABS: ALB/GLOB RATIO 1.2 (1.0-2.1); ALBUMIN 4.1 g/dL (3.5-5.0)
[2018-12-06 10:58] LABS: TROPONIN I 0.014 ng/mL (0.00-0.120)
--- NOTE | 2018-12-06 11:43 | RAD ---
Date of service: 12/06/2018 HISTORY: Shortness of breath COMPARISON: 08/21/2018. TECHNIQUE: Chest PA and lateral FINDINGS: LINES AND TUBES: None. LUNG AND PLEURA: The lungs are well inflated and clear. No pleural effusion or pneumothorax. HEART AND MEDIASTINUM: The heart is not enlarged. No aortic atherosclerotic calcifications present. The hilar and mediastinal contours are within normal limits. SKELETAL STRUCTURES: The bony structures are within normal limits for the patient's age. VISUALIZED UPPER ABDOMEN: Normal. OTHER FINDINGS: There are multiple surgical clips in the epigastrium and right upper quadrant. IMPRESSION: No active pulmonary disease.
[2018-12-06 12:23] VITALS: BP 141/53; PULSE 86; RESP 14; TEMP 97.5
[2018-12-06 12:43] VITALS: O2SAT 99
--- NOTE | 2018-12-08 00:02 | CARD ---
APPROVED REPORT Date of service: 12/06/2018 EKG Measurement Heart [id number] <Conclusion> Normal sinus rhythm Nonspecific ST and T wave abnormality Abnormal ECG
== END 2018-12-06 13:17 | disposition home or self-care (01) ==
LOC: C.ER 09:20
DX: J11.1 Influenza due to unidentified influenza virus with other respiratory manifestations (principal)
CPT/HCPCS: 71046; 80053; 81001; 83880; 84484; 85025; 87804; 93005; 96374; 99283; J1885

== ENCOUNTER 2018-12-10 00:16 | Emergency (ER) | payer MEDICARE ==
[2018-12-10 00:16] VITALS: BMI 24.7
[2018-12-10] MEDS ORDERED: Albuterol-Ipratrop 3 mg / 0.5 (3 ml) UD INH STA (01:20)
[2018-12-10] MEDS ORDERED: Albuterol-Ipratrop 3 mg / 0.5 (3 ml) UD ONE (01:31)
--- NOTE | 2018-12-10 01:33 | C.PDOC ---
History Of Present Illness Patient reports she was seen here several days ago for cough, labs and CXR done and she was diagnosed with bronchitis. Given Tamiflu, Zpack, and albuterol inhaler. Patient finished the abx and still has a cough. Denies fever, dyspnea, chest pain, nausea, vomiting, or any other symptoms. She does not smoke. Time Seen by Provider: 12/10/18 01:18 Chief Complaint (Nursing): Cough, Cold, Congestion History Per: Patient, Family Past Medical History Reviewed: Historical Data, Nursing Documentation, Vital Signs Vital Signs: Last Vital Signs Temp 98.7 F 12/10/18 00:27 Pulse 87 12/10/18 00:27 Resp 16 12/10/18 00:27 BP 174/69 H 12/10/18 00:27 Pulse Ox 97 12/10/18 00:27 - Medical History PMH: Anxiety, Arthritis, Colonic Polyps (VERY LARGE POLYP), Gastritis, Gall Bladder Disease, HTN, Hypercholesterolemia, Kidney Stones, Peripheral Edema (SOMETIMES), Chronic Kidney Disease, Seizures (SEIZURE LIKE AFTER ANESTHESIA) Denies: Fractures, TIA Surgical History: Appendectomy, Cholecystectomy, Endoscopy Denies: Pacemaker Family History: States: Unknown Family Hx - Social History Hx Alcohol Use: No Hx Substance Use: No - Immunization History Hx Tetanus Toxoid Vaccination: No Hx Influenza Vaccination: No Hx Pneumococcal Vaccination: No Review Of Systems Except As Marked, All Systems Reviewed And Found Negative. Constitutional: Negative for: Fever Cardiovascular: Negative for: Chest Pain Respiratory: Positive for: Cough, Sputum, Wheezing. Negative for: Shortness of Breath Gastrointestinal: Negative for: Nausea, Vomiting, Abdominal Pain, Diarrhea Genitourinary: Negative for: Dysuria Skin: Negative for: Rash Neurological: Negative for: Altered Mental Status Physical Exam - Physical Exam Appears: In Acute Distress (Mild distress, congested, frequent cough) Skin: Normal Color, Warm, Dry, No Diaphoretic Head: Atraumatic Eye(s): bilateral: Normal Inspection Oral Mucosa: Moist Chest: Symmetrical Cardiovascular: Rhythm Regular Respiratory: No Accessory Muscle Use, Wheezing (diffuse) Gastrointestinal/Abdominal: Normal Exam Extremity: No Deformity, No Swelling Neurological/Psych: Oriented x3, Normal Speech ED Course And Treatment - Laboratory Results Result Diagrams: 12/10/18 01:42 12/10/18 01:42 O2 Sat by Pulse Oximetry: 97 - Radiology CXR: Interpreted by Me CXR Interpretation: Yes: Infiltrates (RLL) Medical Decision Making Medical Decision Making: Patient given duoneb x1 with improvement in respiratory status. Discussed lab and imaging findings with patient. Patient with normal HR and BP, afebrile, and has no leukocytosis. Will discharge home with Rx for 10 day course of doxycycline, patient previously took zpack with no relief. She has albuterol inhaler at home. Will also give Rx for tessalon pearles for cough. Advised returning to the ED without fail for any new or worsening symptoms. Otherwise follow up with PMD as needed. Disposition - Disposition Disposition: HOME/ ROUTINE Disposition Time: 03:03 Condition: STABLE Instructions: Pneumonia, Adult (DC) Forms: [facility] (Sammarinese) - Clinical Impression Clinical Impression: Pneumonia
[2018-12-10 01:52] LABS: BASO # 0.1 K/uL (0.0-0.2); BASO % 0.8 % (0.0-2.0); EOS # 0.4 K/uL (0.0-0.7); EOS % 5.5 % (0.0-4.0); HEMOGLOBIN 8.8 g/dL (11.0-16.0); LYMPH # 1.6 K/uL (1.0-4.3); LYMPH % 21.1 % (20.0-40.0); MEAN CELL VOLUME 80.6 fL (81.0-99.0); MEAN CORPUSCULAR HEMOGLOBIN 25.9 pg (27.0-31.0); MEAN CORPUSCULAR HGB CONC 32.1 g/dL (33.0-37.0); MEAN PLATELET VOLUME 8.6 fL (7.2-11.7); MONO # 0.9 K/uL (0.0-0.8); MONO % 12.2 % (0.0-10.0); NEUT # 4.6 K/uL (1.8-7.0); NEUT % 60.4 % (50.0-75.0); RBC 3.38 Mil/uL (3.80-5.20); WHITE BLOOD COUNT 7.7 K/uL (4.8-10.8)
[2018-12-10 02:16] LABS: CALCIUM 9.1 mg/dl (8.6-10.4)
[2018-12-10 02:37] VITALS: BP 148/66; PULSE 81; RESP 18; TEMP 98.3
[2018-12-10 03:03] VITALS: O2SAT 97
--- NOTE | 2018-12-10 11:10 | RAD ---
Date of service: 12/10/2018 HISTORY: Cough COMPARISON: 12/06/2018. FINDINGS: LUNGS: The lungs are well inflated and clear. PLEURA: No pleural effusions or pneumothorax. CARDIOVASCULAR: There is persistent mild cardiomegaly. There are aortic atherosclerotic calcifications present. OSSEOUS STRUCTURES: Within normal limits for the patient's age. VISUALIZED UPPER ABDOMEN: Normal. OTHER FINDINGS: The multiple surgical clips in the right upper quadrant and epigastrium. IMPRESSION: No active pulmonary disease.
== END 2018-12-10 03:10 | disposition home or self-care (01) ==
LOC: C.ER 00:16
DX: J18.9 Pneumonia, unspecified organism (principal); E78.00 Pure hypercholesterolemia, unspecified; I12.9 Hypertensive chronic kidney disease with stage 1 through stage 4 chronic kidney disease, or unspecified chronic kidney disease; N18.9 Chronic kidney disease, unspecified

== ENCOUNTER 2019-02-24 11:51 | Outpatient (CLI) | payer MEDICARE | END 2019-02-24 11:52 | disposition home or self-care (01) | LOC: C.RADIC 11:51 | DX: J15.9 Unspecified bacterial pneumonia (principal) ==